=== PATIENT | female | born 1940 | race Caucasian/White ===

== ENCOUNTER → 2018-03-09 12:18 | Outpatient (CLI) | payer MEDICARE, OTHER, SELFPAY ==
--- NOTE | 2018-03-11 07:53 | PM.PFT.1 ---
Pulmonary Function Test Referral & Results Date Patient Seen: 03/09/18 Requesting provider: Presley Hidalgo Results: The spirometry demonstrates an FVC of 1.80 L which is 79% of predicted. The FEV1 was measured at 1.37 L which is 81% of predicted. The FEV1/FVC ratio was 76 which is 102% of predicted. Following the administration of bronchodilator there was a 55% improvement in FEF 25-75% but negligible improvement otherwise. Lung volumes show an SVC of 1.96 L which is 82% of predicted. The diffusing capacity was measured at 16.65 which is 82% of predicted. No hemoglobin value was provided, so no correction for potential anemia could be made, if appropriate. The maximum voluntary ventilation was reduced. Interpretation: This study demonstrates mild obstructive lung disease with limited evidence of benefit following bronchodilator administration based on improvement in FEF 25-75% which would indicate small airway improvement There is minimal reduction in lung volumes suggesting minimal restrictive lung disease There is also a minimal reduction in diffusing capacity. Compared to PFTs performed in January 2015, current study is essentially unchanged. There was very minimal reduction in FEV1 compared to previous
== END ==
PROVIDERS: PCP Family Medicine; Visit Provider Family Medicine
DX: R05 Cough (principal)
CPT/HCPCS: 94010; 94060; 94726; 94729

== ENCOUNTER 2018-12-10 15:09 | Emergency (ER) | payer MEDICARE, OTHER, SELFPAY ==
[2018-12-10 15:14] VITALS: BP 192/67; PULSE 63; RESP 16; TEMP 36.7; O2SAT 99; BMI 26.5
== END 2018-12-10 16:45 | disposition left against medical advice (07) ==
PROVIDERS: Emergency Provider Emergency Medicine; PCP Student in an Organized Health Care Education/Training Program
DX: M79.89 Other specified soft tissue disorders (principal)
CPT/HCPCS: 99281; 99282

== ENCOUNTER → 2018-12-16 14:04 | Outpatient (CLI) | payer MEDICARE, OTHER, SELFPAY ==
[2018-12-19 19:17] LABS: Fecal Immunochemical Test NOT DETECTED (NOT DETECTED)
== END ==
PROVIDERS: PCP Student in an Organized Health Care Education/Training Program; Visit Provider Student in an Organized Health Care Education/Training Program
DX: Z13.820 Encounter for screening for osteoporosis (principal); Z78.0 Asymptomatic menopausal state; Z90.722 Acquired absence of ovaries, bilateral; Z82.62 Family history of osteoporosis; Z87.891 Personal history of nicotine dependence; Z79.899 Other long term (current) drug therapy; Z91.89 Other specified personal risk factors, not elsewhere classified
CPT/HCPCS: 77080; 82274

== ENCOUNTER 2019-01-16 15:42 | Emergency (ER) | payer MEDICARE, OTHER, SELFPAY ==
[2019-01-16 15:55] VITALS: BP 170/80; PULSE 92; RESP 18; TEMP 37.3; O2SAT 97; BMI 27.1
[2019-01-16 16:25] VITALS: PULSE 89; RESP 12; O2SAT 98
[2019-01-16] MEDS: ALBUTEROL 2.5 MG/3 ML NEB (ADULT) INH (16:25)
--- NOTE | 2019-01-16 16:25 | DI.RAD.S_ITS ---
PROCEDURE: XR CHEST 1V INDICATIONS: short of breath TECHNIQUE: One view of the chest was acquired. COMPARISON: [facility], CHEST 2 VIEW, 09/12/2012, 14:20. [facility], CHEST 2 VIEW, 01/30/2015, 10:59. FINDINGS: Surgical changes and devices: None. Lungs and pleura: There is a small left-sided pleural effusion seen. No pneumothorax is seen. Mild interstitial prominence is seen. Mediastinum: There is moderate cardiomegaly. Atherosclerotic calcification of the aortic arch is noted. Bones and chest wall: No suspicious bony lesions. Age-appropriate bony degenerative changes are seen. Overlying soft tissues appear unremarkable. IMPRESSION: Cardiomegaly, interstitial prominence, a small left-sided effusion can be seen. Please correlate with patient presentation, physical examination findings, and laboratory values for congestive heart failure. Dictated by: Archie Asher M.D. on 01/16/2019 at 16:09 Approved by: Archie Asher M.D. on 01/16/2019 at 16:10
[2019-01-16 16:26] VITALS: BP 187/93; PULSE 73; RESP 26; O2SAT 98
[2019-01-16 16:34] LABS: INR 1.1 (0.9-1.3); Prothrombin Time 13.2 SECONDS (10.1-12.7)
[2019-01-16 16:35] LABS: Add Manual Diff / Slide Review NO; Basophils Absolute Auto 100 /uL (0-100); Basophils Percent Auto 0.6 % (0-2); Eosinophils Absolute Auto 100 /uL (0-450); Eosinophils Percent Auto 1.3 % (2-4); Hematocrit 37.6 % (36-46); Hemoglobin 12.5 g/dL (12.0-16.0); Lymphocytes Absolute Auto 1200 /uL (1100-4500); Lymphocytes Percent Auto 12.9 % (25-40); Mean Corpuscular HGB Conc 33.3 % (30-36); Mean Corpuscular Hemoglobin 30.4 PG (26-34); Mean Corpuscular Volume 91.1 fL (80-100); Monocytes Absolute Auto 900 /uL (0-900); Monocytes Percent Auto 9.4 % (3-14); Neutrophils Absolute Auto 6900 /uL (1500-7000); Neutrophils Percent Auto 75.8 % (50-75); Platelet Count 378 X10^3/uL (150-400); Red Blood Cell Count 4.13 X10^6/uL (4.0-5.2); Red Cell Distribution Width 14.7 % (11.6-14.8); White Blood Cell Count 9.1 X10^3/uL (4.5-11.0)
[2019-01-16 16:37] LABS: PTT Partial Thromboplastin Tim 28 SECONDS (26.4-36.2)
[2019-01-16 16:39] LABS: Alanine Aminotransferase 31 IU/L (9-52); Albumin 4.3 g/dL (3.5-5.0); Albumin Globulin Ratio 1.5 (1.0-2.8); Alkaline Phosphatase 73 U/L (38-126); BUN Creatinine Ratio 34.3 (6-22); Bilirubin Total 0.9 mg/dL (0.2-1.3); Blood Urea Nitrogen 24 mg/dL (7-17); Calcium 9.5 mg/dL (8.4-10.2); Carbon Dioxide 26 mmol/L (22-32); Chloride 104 mmol/L (98-107); Creatine Kinase 106 U/L (30-135); Estimated Glomerular Filt Rate > 60.0 mL/min (>60); Globulin 2.9 g/dL (1.7-4.1); Glucose 118 mg/dL (80-110); Lipase 59 U/L (23-300); Potassium 4.2 mmol/L (3.4-5.1); Sodium 141 mmol/L (137-145); Total Protein 7.2 g/dL (6.3-8.2)
--- NOTE | 2019-01-16 16:40 | ED.SOB ---
HPI - SOB/Dyspnea General Chief Complaint: Shortness of Breath/Dyspnea Stated Complaint: SOB Time Seen by Provider: 01/16/19 16:13 Source: patient Mode of arrival: ambulatory Limitations: no limitations History of Present Illness Patient is an 78-year-old female presents with increasing shortness of breath. She says every time she exerts herself even in the slightest such as vacuuming she gets short of breath, this is been ongoing for few days but she noticed it significantly worse today. She called her PCP who told her to come to the ED. She denies any fever weakness body aches. She does have some lower extremity edema. She says that she is on furosemide and that she is taking it regularly. She has no chest pain no heart palpitations. H she is noted to be mildly hypoxic 88% at on room air, but has no conversational dyspnea Related Data Home Medications Medication Instructions Recorded Confirmed aspirin 81 mg tablet,delayed 81 mg PO DAILY 12/01/18 01/16/19 release lisinopril 20 mg tablet 20 mg PO DAILY 12/01/18 01/16/19 Aronia 1 dose PO DAILY 01/16/19 01/16/19 Astralages 1 dose PO DAILY 01/16/19 01/16/19 CoQ-10 1 cap PO DAILY 01/16/19 01/16/19 Immune Support Complex 1 cap PO DAILY 01/16/19 01/16/19 Lactobacillus acidophilus 1 cap PO PRN PRN 01/16/19 01/16/19 [Acidophilus] alprazolam 0.25 mg PO BID PRN 01/16/19 01/16/19 ascorbic acid (vitamin C) 1 tab PO DAILY 01/16/19 01/16/19 echinacea 1 tab PO DAILY 01/16/19 01/16/19 estradiol 0.5 mg PO Q OTHER DAY 01/16/19 01/16/19 fluoxetine 10 mg PO DAILY 01/16/19 01/16/19 furosemide 40 mg PO DAILY 01/16/19 01/16/19 melatonin 3 mg PO BEDTIME PRN 01/16/19 01/16/19 [id number] acid-lutein [Centrum 1 tab PO DAILY 01/16/19 01/16/19 Silver] naproxen 375 mg PO BID PRN 01/16/19 01/16/19 vitamin E 400 unit PO DAILY 01/16/19 01/16/19 zinc 1 tab PO DAILY 01/16/19 01/16/19 Previous Rx's Medication Instructions Recorded albuterol sulfate HFA 90 2 puff INHALATION Q4-6H PRN #18 03/17/18 mcg/actuation aerosol inhaler gram umeclidinium 62.5 mcg/actuation 1 inhalation INHALATION DAILY #30 03/17/18 blister powder for inhalation each cetirizine 10 mg tablet 10 mg PO DAILY #90 tab 03/18/18 acetaminophen 325 mg capsule 325 mg PO QID PRN #90 cap 04/25/18 omeprazole 20 mg capsule,delayed 20 mg PO DAILY #30 cap 08/24/18 release furosemide [Lasix] 20 mg PO TID #10 tab 01/16/19 furosemide [Lasix] 20 mg PO TID #30 tab 01/16/19 Allergies Allergy/AdvReac Type Severity Reaction Status Date / Time latex Allergy Severe BREAKOUT Verified 01/16/19 16:02 prochlorperazine Allergy Severe TARDIVE Verified 01/16/19 16:02 DYSKINESIA Review of Systems Review of Systems ROS Unobtainable: All systems reviewed & are unremarkable except as noted in HPI and below Constitutional Denies chills, Denies fever(s), Denies lethargy and Denies weakness Cardiovascular Denies chest pain, Reports pedal edema, Denies irregular heart rhythm, Denies lightheadedness, Denies palpitations, Reports dyspnea on exertion and Denies orthopnea Respiratory Reports as per HPI and Reports dyspnea on exertion Genitourinary Denies hematuria, Denies flank pain, Denies urinary incontinence and Denies urinary urgency Musculoskeletal Denies back pain, Denies muscle weakness, Denies numbness and Denies tingling Integumentary/Breasts Denies pruritus, Denies erythema, Denies rash and Denies wounds Neurologic Denies numbness, Denies tingling and Denies weakness Endocrine Denies palpitations [facility] Medical History AVM (arteriovenous malformation) (Chronic) Atrial fibrillation (Chronic 2012) Chronic headaches (Chronic) Foot pain (Chronic) Hyperlipidemia (Chronic) Hypertension (Chronic) Lumbar spine pain (Chronic 1976) Migraines (Chronic) CTS (carpal tunnel syndrome) (Resolved 2004) Cerebral aneurysm (Resolved 1949) Chicken pox (Resolved 1948) Depression (Resolved 1984) Fibroids (Resolved 1988) Measles (Resolved 1947) Ovarian cyst (Resolved 1956) Painful menstrual periods (Resolved 1951) Stroke (Resolved) Surgical History Anesthesia (Resolved) History of appendectomy (Resolved ~07/1990) History of carpal tunnel repair (Resolved 2004) Status post colonoscopy (Resolved 09/05/07) Status post endoscopy (Resolved 05/22/13) Status post epidural steroid injection (Resolved) Status post hysterectomy (Resolved ~07/1990) History of bilateral salpingo-oophorectomy (BSO) Family History Brother Coronary artery disease Myocardial infarction Father Kidney disease Glomerulonephritis Grandfather Heart disease Cerebrovascular accident (CVA), unspecified mechanism Grandmother Essential hypertension Mental health problem Vascular disease Mother Multiple myeloma Grandmother Gastric hemorrhage Essential hypertension High cholesterol Brother No problems noted. Grandfather Myocardial infarction Social History Smoking Status: Former smoker Family History Brother Coronary artery disease Myocardial infarction Father Kidney disease Glomerulonephritis Grandfather Heart disease Cerebrovascular accident (CVA), unspecified mechanism Grandmother Essential hypertension Mental health problem Vascular disease Mother Multiple myeloma Grandmother Gastric hemorrhage Essential hypertension High cholesterol Brother No problems noted. Grandfather Myocardial infarction Social History marital status: Smoking Status: Former smoker Exam Initial Vital Signs Initial Vital Signs: Vital Signs Temperature 99.2 F 01/16/19 15:55 Pulse Rate 92 H 01/16/19 15:55 Respiratory Rate 18 01/16/19 15:55 Blood Pressure 170/80 H 01/16/19 15:55 Pulse Oximetry 97 01/16/19 15:55 GENERAL: Alert nice elderly lady no acute distress speaking full sentences HEENT: Head atraumatic,EOMI, pupils reactive, face symmetric, CARDIOVASCULAR: Regular rate and rhythm without murmurs, rubs or gallops. RESPIRATORY: Breath sounds equal bilaterally some crackles at base is no respiratory distress ABDOMEN: Soft, nontender. Normoactive bowel sounds all 4 quadrants. No guarding or rebound. RECTAL: Hemoccult-positive, no hemorrhoids, nontender : No CVA tenderness EXTREMITIES: Normal range of motion, no clubbing +2 pitting edema Neurovascularly intact NEUROLOGICAL: Alert and oriented x4.Normal gait and speech SKIN: Warm, dry, no laceration, no petechiae, no rashes or lesions. Course Orders Ordered: ED Orders 01/16/19 16:13 EKG-12 Lead Stat 01/16/19 16:16 BNP [B Type Natriuretic Peptide] Stat Complete Blood Count AUTO DIFF Stat Comprehensive Metabolic Panel Stat Lipase Stat Magnesium Stat Partial Thromboplastin Time Stat Prothrombin Time INR Stat Troponin & CK Cardiac Panel Stat 01/16/19 16:25 Consult to Respiratory Therapy Evaluate & Treat XR chest 1V Stat 01/16/19 16:36 Lactate (Lactic Acid) Stat Discontinued Medications Albuterol (Ventolin) 2.5 mg INH NOW ONE Stop: 01/16/19 16:24 Last Admin: 01/16/19 16:25 Dose: 2.5 mg Albuterol/Ipratropium (Duoneb) 3 ml INH NOW ONE Stop: 01/16/19 16:26 Last Admin: 01/16/19 18:05 Dose: 3 ml Furosemide (Lasix) 40 mg IV NOW ONE Stop: 01/16/19 17:45 Last Admin: 01/16/19 17:59 Dose: 40 mg Vital Signs - 8 hr 01/16/19 15:55 01/16/19 16:25 01/16/19 16:26 Temperature 99.2 F Pulse Rate 92 H 89 73 Respiratory Rate 18 12 26 H Blood Pressure 170/80 H Blood Pressure [Left Arm] 187/93 H Pulse Oximetry 97 98 98 01/16/19 18:05 Temperature Pulse Rate 79 Respiratory Rate 16 Blood Pressure Blood Pressure [Left Arm] Pulse Oximetry 100 MDM - SOB/Dyspnea Lab Data Attestation: I reviewed the patient's lab results. Result diagrams: 01/16/19 16:16 01/16/19 16:16 Lab Results 01/16/19 01/16/19 01/16/19 Range/Units 16:16 16:16 16:16 WBC 9.1 (4.5-11.0) X10^3/uL RBC 4.13 (4.0-5.2) X10^6/uL Hgb 12.5 (12.0-16.0) g/dL Hct 37.6 (36-46) % MCV 91.1 (80-100) fL MCH 30.4 (26-34) PG MCHC 33.3 (30-36) % RDW 14.7 (11.6-14.8) % Plt Count 378 (150-400) X10^3/uL Neut % (Auto) 75.8 H (50-75) % Lymph % (Auto) 12.9 L (25-40) % [place] % (Auto) 9.4 (3-14) % Eos % (Auto) 1.3 L (2-4) % Baso % (Auto) 0.6 (0-2) % Neut # (Auto) 6900 (8389-0087) /uL Lymph # (Auto) 1200 (0670-8213) /uL [place] # (Auto) 900 (0-900) /uL Eos # (Auto) 100 (0-450) /uL Baso # (Auto) 100 (0-100) /uL PT 13.2 H (10.1-12.7) SECONDS INR 1.1 (0.9-1.3) APTT 28 (26.4-36.2) SECONDS Sodium 141 (137-145) mmol/L Potassium 4.2 (3.4-5.1) mmol/L Chloride 104 (98-107) mmol/L Carbon Dioxide 26 (22-32) mmol/L BUN 24 H (7-17) mg/dL Creatinine 0.70 (0.52-1.04) mg/dL Estimated GFR > 60.0 (>60) mL/min BUN/Creatinine Ratio 34.3 H (6-22) Glucose 118 H (80-110) mg/dL Lactate (0.7-2.1) mmol/L Calcium 9.5 (8.4-10.2) mg/dL Magnesium (1.6-2.3) mg/dL Total Bilirubin 0.9 (0.2-1.3) mg/dL AST 38 H (14-36) IU/L ALT 31 (9-52) IU/L Alkaline Phosphatase 73 (38-126) U/L Total Creatine Kinase 106 (30-135) U/L CK-MB (CK-2) 3.70 H (<2.37) ng/mL CK-MB (CK-2) Rel Index 3.5 (1.5-5.0) % Troponin I 0.034 (0.01-0.034) ng/mL B-Natriuretic Peptide 327 H (<100) Total Protein 7.2 (6.3-8.2) g/dL Albumin 4.3 (3.5-5.0) g/dL Globulin 2.9 (1.7-4.1) g/dL Albumin/Globulin Ratio 1.5 (1.0-2.8) Lipase 59 (23-300) U/L 01/16/19 01/16/19 Range/Units 16:16 16:36 WBC (4.5-11.0) X10^3/uL RBC (4.0-5.2) X10^6/uL Hgb (12.0-16.0) g/dL Hct (36-46) % MCV (80-100) fL MCH (26-34) PG MCHC (30-36) % RDW (11.6-14.8) % Plt Count (150-400) X10^3/uL Neut % (Auto) (50-75) % Lymph % (Auto) (25-40) % [place] % (Auto) (3-14) % Eos % (Auto) (2-4) % Baso % (Auto) (0-2) % Neut # (Auto) (0474-8878) /uL Lymph # (Auto) (1647-0771) /uL [place] # (Auto) (0-900) /uL Eos # (Auto) (0-450) /uL Baso # (Auto) (0-100) /uL PT (10.1-12.7) SECONDS INR (0.9-1.3) APTT (26.4-36.2) SECONDS Sodium (137-145) mmol/L Potassium (3.4-5.1) mmol/L Chloride (98-107) mmol/L Carbon Dioxide (22-32) mmol/L BUN (7-17) mg/dL Creatinine (0.52-1.04) mg/dL Estimated GFR (>60) mL/min BUN/Creatinine Ratio (6-22) Glucose (80-110) mg/dL Lactate 1.2 (0.7-2.1) mmol/L Calcium (8.4-10.2) mg/dL Magnesium 1.8 (1.6-2.3) mg/dL Total Bilirubin (0.2-1.3) mg/dL AST (14-36) IU/L ALT (9-52) IU/L Alkaline Phosphatase (38-126) U/L Total Creatine Kinase (30-135) U/L CK-MB (CK-2) (<2.37) ng/mL CK-MB (CK-2) Rel Index (1.5-5.0) % Troponin I (0.01-0.034) ng/mL B-Natriuretic Peptide (<100) Total Protein (6.3-8.2) g/dL Albumin (3.5-5.0) g/dL Globulin (1.7-4.1) g/dL Albumin/Globulin Ratio (1.0-2.8) Lipase (23-300) U/L Imaging Data Chest x-ray: Radiologist's impression: PROCEDURE: XR CHEST 1V INDICATIONS: short of breath TECHNIQUE: One view of the chest was acquired. COMPARISON: [facility], CHEST 2 VIEW, 09/12/2012, 14:20. [facility], CHEST 2 VIEW, 01/30/2015, 10:59. FINDINGS: Surgical changes and devices: None. Lungs and pleura: There is a small left-sided pleural effusion seen. No pneumothorax is seen. Mild interstitial prominence is seen. Mediastinum: There is moderate cardiomegaly. Atherosclerotic calcification of the aortic arch is noted. Bones and chest wall: No suspicious bony lesions. Age-appropriate bony degenerative changes are seen. Overlying soft tissues appear unremarkable. IMPRESSION: Cardiomegaly, interstitial prominence, a small left-sided effusion can be seen. Please correlate with patient presentation, physical examination findings, and laboratory values for congestive heart failure. Dictated by: Archie Asher M.D. on 01/16/2019 at 16:09 ECG Data Attestation: I personally reviewed and interpreted this ECG as follows: Prior ECG tracings: not available for review Interpretation: Atrial fibrillation rate [address] changes no priors to compare MDM Narrative Medical decision making narrative: Patient isn't needing 1-2 L of oxygen while at rest. With ambulation O2 sat dropped from 88-89%. Patient is extremely angry that she has been waiting a long time she needs to go feed her animals. I have explained to her that I actually recommended admission due to her oxygen level. I explained that she needs to be on an increased dose of her diuretic. She is able to argue with me without oxygen without any sort of respiratory distress. At this time patient will be discharged with increasing dose and frequency of furosemide I told her at least 3 times a day for the next 3 days. She agreed to return to the ED when she planned to be admitted, even though discussed that patient's stone plan to be admitted and sometimes they need oxygen. The patient is clinically sober, free from distracting injury, appears to have intact insight, judgment and reason. Does not meet criteria for involuntary hospitalization. Patient has the capacity to make decisions. Discharge Plan Departure Patient Disposition: Home Clinical Impression: CHF (congestive heart failure) Qualifiers: Heart failure type: unspecified Heart failure chronicity: unspecified Qualified Code(s): I50.9 - Heart failure, unspecified Discharge Date/Time: 01/16/19 19:07 Interventions: ED Discharge Assessment Last Done: 01/16/19 19:06 Instructions: DI for Heart Failure Activity Restrictions/Additional Instructions: DISCHARGE WE RECOMMENDED THAT HE STAY IN THE HOSPITAL DUE TO YOUR OXYGEN LEVEL, YOU ARE WELCOME TO RETURN TO THE HOSPITAL AT ANY TIME IF YOU SHOULD HAVE INCREASING SHORTNESS OF BREATH *You have been diagnosed with congestive heart failure *What to do: It is recommended that he stay in the hospital to have further testing and oxygen provided *Continue to take medications as directed Furosimide 20mg 3 times a day FOR 3 DAYS ONLY *Follow up with your primary care provider in 2-3 days *Return to ER if you should have increasing shortness of breath , chest pain fever any new, worsening or concerning symptoms Prescriptions: New furosemide [Lasix] 20 mg tablet 20 mg PO TID Qty: 30 RF: 0 furosemide [Lasix] 20 mg tablet 20 mg PO TID Qty: 10 RF: 0 No Action umeclidinium [Incruse Ellipta] 62.5 mcg/actuation blister with device 1 inhalation INHALATION DAILY Qty: 30 RF: 0 albuterol sulfate 90 mcg/actuation HFA aerosol inhaler 2 puff INHALATION Q4-6H PRN (Reason: shortness of breath or wheezing) Qty: 18 RF: 6 omeprazole 20 mg capsule,delayed release(DR/EC) 20 mg PO DAILY Qty: 30 RF: 1 cetirizine [All Day Allergy (cetirizine)] 10 mg tablet 10 mg PO DAILY Qty: 90 RF: 0 acetaminophen 325 mg capsule 325 mg PO QID PRN (Reason: pain) Qty: 90 RF: 0 lisinopril 20 mg tablet 20 mg PO DAILY RF: 0 aspirin [Adult Low Dose Aspirin] 81 mg tablet,delayed release (DR/EC) 81 mg PO DAILY RF: 0 naproxen 375 mg Tablet 375 mg PO BID PRN (Reason: pain) RF: 0 alprazolam 0.25 mg Tablet 0.25 mg PO BID PRN (Reason: pain) RF: 0 estradiol 0.5 mg Tablet 0.5 mg PO Q OTHER DAY RF: 0 furosemide 40 MG tablet 40 mg PO DAILY RF: 0 fluoxetine 10 MG capsule 10 mg PO DAILY RF: 0 vitamin E 400 unit Capsule 400 unit PO DAILY RF: 0 Centrum Silver 400-250 mcg Tablet,Chewable 1 tab PO DAILY RF: 0 CoQ-10 1 cap PO DAILY RF: 0 Immune Support Complex 1 cap PO DAILY RF: 0 ascorbic acid (vitamin C) 1 tab PO DAILY RF: 0 echinacea 1 tab PO DAILY RF: 0 Aronia 1 dose PO DAILY RF: 0 Astralages 1 dose PO DAILY RF: 0 melatonin 3 mg Tablet 3 mg PO BEDTIME PRN (Reason: Sleep) RF: 0 Lactobacillus acidophilus [Acidophilus] Capsule 1 cap PO PRN PRN (Reason: Diarrhea) RF: 0 zinc 1 tab PO DAILY RF: 0 Referrals: Gene Macias MD [Primary Care Provider] -
[2019-01-16 16:51] LABS: Troponin I 0.034 ng/mL (0.01-0.034)
[2019-01-16 16:52] LABS: B Type Natriuretic Peptide 327 (<100)
[2019-01-16 17:14] LABS: Lactate (Lactic Acid) 1.2 mmol/L (0.7-2.1)
[2019-01-16] MEDS: FUROSEMIDE 40 MG/4 ML VIAL IV (17:59)
[2019-01-16 18:03] LABS: Magnesium 1.8 mg/dL (1.6-2.3)
[2019-01-16 18:05] VITALS: PULSE 79; RESP 16; O2SAT 100
[2019-01-16] MEDS: ALBUTEROL/IPRATROPIUM 3 ML AMPUL INH (18:05)
[2019-01-16 18:06] LABS: CKMB % Relative Index 3.5 % (1.5-5.0)
[2019-01-16 18:09] LABS: HEMOLYSIS 65 (0-50)
[2019-01-16 18:10] LABS: Aspartate Aminotransferase 38 IU/L (14-36)
== END 2019-01-16 19:07 | disposition home or self-care (01) ==
PROVIDERS: Emergency Provider Emergency Medicine; PCP Student in an Organized Health Care Education/Training Program
DX: I50.9 Heart failure, unspecified (principal)
CPT/HCPCS: 36415; 36591; 71045; 80053; 82550; 82553; 83605; 83690; 83735; 83880; 84484; 85025; 85610; 85730; 93005; 94640; 96374; 99283; 99285; J1940; J7613

== ENCOUNTER → 2019-05-12 10:58 | Outpatient (CLI) | payer MEDICARE, OTHER, SELFPAY ==
[2019-05-20 01:06] LABS: Calprotectin, Stool 295.9 mcg/g
== END ==
PROVIDERS: PCP Nurse Practitioner; Visit Provider Student in an Organized Health Care Education/Training Program
DX: R19.7 Diarrhea, unspecified (principal)
CPT/HCPCS: 83993; 84376

== ENCOUNTER → 2019-05-23 10:16 | Outpatient (CLI) | payer MEDICARE, OTHER, SELFPAY ==
[2019-05-23 13:13] LABS: Clostridium Difficile Tox PCR Negative for C. diff
== END ==
PROVIDERS: PCP Nurse Practitioner; Visit Provider Student in an Organized Health Care Education/Training Program
DX: R19.7 Diarrhea, unspecified (principal)
CPT/HCPCS: 87493

== ENCOUNTER 2020-06-29 21:13 | Inpatient (IN) | payer MEDICARE, OTHER, SELFPAY ==
[2020-06-29 21:35] VITALS: BP 179/71; PULSE 68; RESP 18; TEMP 36.5; O2SAT 92; BMI 21.9
[2020-06-29 21:44] LABS: Bacteria Urine Few (2-10); Culture Indicated Urine Specimen Cultured; Hyaline Casts Urine 0-1/LPF; RBC Urine 1-5/HPF (0-5/HPF); Squamous Epithelial Cell Urine 1-5 /HPF (0-5/HPF); WBC Urine 1-5/HPF (0-5/HPF)
[2020-06-29 21:49] VITALS: PULSE 59; RESP 19; O2SAT 98
[2020-06-29 22:00] VITALS: BP 186/87; PULSE 65; RESP 23; O2SAT 98
--- NOTE | 2020-06-29 22:07 | DI.CT.S_ITS ---
PROCEDURE: CT HEAD/BRAIN WO CON INDICATIONS: L arm L leg weakness, numbness, balance TECHNIQUE: Noncontrast 4.5 mm thick angled axial sections acquired from the foramen magnum to the vertex, with coronal and sagittal reformats. For radiation dose reduction, the following was used: automated exposure control, adjustment of mA and/or kV according to patient size. COMPARISON: None. FINDINGS: Image quality: Excellent. CSF spaces: Basal cisterns are patent. No extra-axial fluid collections. The ventricles are symmetric in size and shape. Brain: No intracranial bleeds or masses. There is cerebral volume loss for age, with resultant ventricular and sulcal prominence. There are periventricular and deep white matter chronic small vessel ischemic changes. There is a remote appearing right posterior cerebral this for infarction seen. There is intracranial internal carotid artery atherosclerosis. Skull and face: Calvarium and visualized facial bones appear intact, without suspicious lesions. Sinuses: Visualized sinuses and mastoids are clear. 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 IMPRESSION: No acute intracranial process is seen. Remote appearing right posterior cerebral infarction. No acute intracranial hemorrhage is seen. Note is made of age-appropriate brain parenchymal volume loss and chronic small vessel ischemic changes. If there is strong clinical suspicion for an acute stroke, please consider an MRI for further evaluation, as it is more sensitive (assuming that there is no contraindication to MRI). Dictated by: Archie Asher M.D. on 06/29/2020 at 22:05 Approved by: Archie Asher M.D. on 06/29/2020 at 22:07
--- NOTE | 2020-06-29 22:11 | ED_ITS ---
HPI - Neuro Symptoms/Deficit General Chief Complaint: Altered Mental Status Stated Complaint: hallucinations Time Seen by Provider: 06/29/20 21:15 Source: patient Mode of arrival: Ambulatory Limitations: no limitations History of Present Illness HPI Narrative: 79-year-old female former smoker with history of atrial fibrillation, hypertension, spontaneous subdural hemorrhages many many years ago presents with her son due to approximately 2 weeks of visual hallucinations along with some confusion and balance issues. The patient lives at home by herself but does have a house shorer that comes a few times a week and her son checks on her 2 times a week. She denies any falls or head injury. She denies any fever, chills nor nausea or vomiting. She denies any chest pain or shortness of breath. She denies any abdominal pain, nausea, vomiting or urinary complaints such as dysuria, frequency or urgency. She does complain of some tingling in her left hand and left foot. She denies any new medications. Her visual hallucinations are largely of her coming to visit her. She does not currently have a primary care provider and does unclear if she has been taking her medications. Onset (ago): week(s) Timing confirmed by: family member Location: ataxia, altered and other History of same: No Severity: moderate Quality: tingling Relieving factors: none Exacerbating factors: none On Anticoagulants: No (baby asa) Associated symptoms: confusion Treatments Prior to Arrival: none Related Data Home Medications Medication Instructions Recorded Confirmed aspirin 81 mg tablet,delayed 81 mg PO DAILY 12/01/18 02/09/19 release lisinopril 20 mg tablet 20 mg PO DAILY 12/01/18 02/09/19 Aronia 1 dose PO DAILY 01/16/19 02/09/19 Astralages 1 dose PO DAILY 01/16/19 02/09/19 CoQ-10 1 cap PO DAILY 01/16/19 02/09/19 Immune Support Complex 1 cap PO DAILY 01/16/19 02/09/19 Lactobacillus acidophilus 1 cap PO PRN PRN 01/16/19 02/09/19 [Acidophilus] alprazolam 0.25 mg PO BID PRN 01/16/19 02/09/19 ascorbic acid (vitamin C) 1 tab PO DAILY 01/16/19 02/09/19 echinacea 1 tab PO DAILY 01/16/19 02/09/19 estradiol 0.5 mg PO Q OTHER DAY 01/16/19 02/09/19 fluoxetine 10 mg PO DAILY 01/16/19 02/09/19 furosemide 40 mg PO DAILY 01/16/19 02/09/19 melatonin 3 mg PO BEDTIME PRN 01/16/19 02/09/19 [id number] acid-lutein [Centrum 1 tab PO DAILY 01/16/19 02/09/19 Silver] naproxen 375 mg PO BID PRN 01/16/19 02/09/19 vitamin E 400 unit PO DAILY 01/16/19 02/09/19 zinc 1 tab PO DAILY 01/16/19 02/09/19 Previous Rx's Medication Instructions Recorded albuterol sulfate 90 mcg/actuation 2 puff INHALATION Q4-6H PRN #18 03/17/18 aerosol inhaler gram umeclidinium 62.5 mcg/actuation 1 inhalation INHALATION DAILY #30 03/17/18 blister powder for inhalation each cetirizine 10 mg tablet 10 mg PO DAILY #90 tab 03/18/18 acetaminophen 325 mg capsule 325 mg PO QID PRN #90 cap 04/25/18 omeprazole 20 mg capsule,delayed 20 mg PO DAILY #30 cap 08/24/18 release furosemide [Lasix] 20 mg PO TID #10 tab 01/16/19 furosemide [Lasix] 20 mg PO TID #30 tab 01/16/19 Allergies Allergy/AdvReac Type Severity Reaction Status Date / Time latex Allergy Severe BREAKOUT Verified 06/29/20 21:35 prochlorperazine Allergy Severe TARDIVE Verified 06/29/20 21:35 DYSKINESIA Review of Systems Constitutional Constitutional: Denies chills, Denies fatigue, Denies fever(s), Denies frequent falls, Denies lethargy and Denies weakness Eyes Eyes: Denies change in vision, Denies eye discharge, Denies irritation and D enies loss of vision ENT Ears, Nose, Mouth, and Throat: Denies change in voice, Denies dizziness, Denies neck pain, Denies sore throat and Denies throat swelling Cardiovascular Cardiovascular: Denies chest pain, Denies irregular heart rhythm, Denies lightheadedness, Denies palpitations, Denies dyspnea, Denies dyspnea on exertion and Denies orthopnea Respiratory Respiratory: Denies cough, Denies dyspnea, Denies dyspnea on exertion and Denies wheezing Gastrointestinal Gastrointestinal: Denies abdominal pain, Denies change in bowel habits, Denies diarrhea, Denies nausea and Denies vomiting Musculoskeletal Musculoskeletal: Denies neck pain and Denies numbness Integumentary/Breasts Skin/Breast: Denies pruritus, Denies erythema, Denies rash and Denies wounds Neurologic Neurologic: Denies behavioral changes, Reports confusion, Denies dizziness, Denies frequent falls, Denies loss of vision, Denies numbness, Reports other vi sual disturbances and Denies weakness Comments: tingling Psychiatric Psychiatric: Denies anxiety, Denies behavioral changes, Reports confusion, Denies depression, Denies homicidal ideation and Denies suicidal ideation Endocrine Endocrine: Denies fatigue, Denies flushing and Denies palpitations Hematologic/Lymphatic Hematologic/Lymphatic: Denies easy bruising Allergic/Immunologic Allergic/Immunologic: Denies urticaria, Denies throat swelling and Denies wheezing Patient History Medical History Atrial fibrillation (Chronic 2012) AVM (arteriovenous malformation) (Chronic) Cerebral aneurysm (Resolved 1949) Chicken pox (Resolved 1948) Chronic headaches (Chronic) CTS (carpal tunnel syndrome) (Resolved 2004) Depression (Resolved 1984) Fibroids (Resolved 1988) Foot pain (Chronic) Hyperlipidemia (Chronic) Hypertension (Chronic) Lumbar spine pain (Chronic 1976) Measles (Resolved 1947) Migraines (Chronic) Ovarian cyst (Resolved 1956) Painful menstrual periods (Resolved 1951) Stroke (Resolved) Surgical History Anesthesia (Resolved) History of appendectomy (Resolved ~07/1990) History of bilateral salpingo-oophorectomy (BSO) History of carpal tunnel repair (Resolved 2004) Status post colonoscopy (Resolved 09/05/07) Status post endoscopy (Resolved 05/22/13) Status post epidural steroid injection (Resolved) Status post hysterectomy (Resolved ~07/1990) Family History Brother Coronary artery disease Myocardial infarction Father Kidney disease Glomerulonephritis Grandfather Heart disease Cerebrovascular accident (CVA), unspecified mechanism Grandmother Essential hypertension Mental health problem Vascular disease Mother Multiple myeloma Grandmother Gastric hemorrhage Essential hypertension High cholesterol Brother No problems noted. Grandfather Myocardial infarction Social History marital status: Smoking Status: Former smoker Smoking Status: Former smoker Substance Use Type: does not use and IV drugs Exam Narrative Exam Narrative: GENERAL: [79] year old patient appears stated age. Well- nourished, well-developed patient, in mild distress. Pleasantly confused HEAD: Atraumatic. Normocephalic. EYES: Pupils equal round and reactive. Extraocular motions intact. No scleral icterus. No injection or drainage. ENT: Nose without bleeding, purulent drainage. Throat without erythema, tonsillar hypertrophy or exudate. Airway patent. NECK: Trachea midline. Non tender CARDIOVASCULAR: Irregular rate and rhythm without murmurs, gallops, or rubs. RESPIRATORY: Clear to auscultation. Breath sounds equal bilaterally. No wheezes, rales, or rhonchi. GASTROINTESTINAL: Abdomen soft, non-tender, nondistended. EXTREMITIES: No edema or joint tenderness. BACK: Nontender without deformity or crepitance. No flank tenderness. SKIN: No rash or erythema of visible areas Initial Vital Signs Initial Vital Signs: Vital Signs Temperature 97.7 F 06/29/20 21:35 Pulse Rate 68 06/29/20 21:35 Respiratory Rate 18 06/29/20 21:35 Blood Pressure 179/71 H 06/29/20 21:35 Pulse Oximetry 92 06/29/20 21:35 Scores NIH Stroke Scale Level of Conciousness: Alert, keenly responsive Ask month/age: Answers both questions correctly. Open/close eyes, close hand: Performs both tasks correctly Best gaze horizontal: Normal Visual lyn: No visual loss Facial palsy: Normal symetrical movement Left arm drift: Drifts down, not to bed Right arm drift: No drift for full 10 sec Left leg drift: Drifts down, not to bed Right leg drift: No drift for full 10 sec Limb ataxia: Present in one limb Sensory on face/arms/legs: Mild to moderate sensory loss, can tell touch Best language: No aphasia, normal Dysarthria: Normal Extinction or inattention: No abnormality Total NIH Stroke scale score: 4 Course Course Course Narrative: Patient with perhaps 2 weeks of what initially was thought to be just confusion and hallucinations but upon completion of them there are focal neurologic findings. UTI demonstrated on urine, and treated but unlikely to contribute to focal findings. She does have a history of atrial fibrillation and hypertension putting her at risk for stroke. She is clearly outside of any interventional window such as TPA or mechanical retrieval. She lives at home alone and has no physician. She will need hospitalization for further evaluation of her diagnosis and stabilization prior to going home. She and her son understand and are in agreement with the plan. Orders Ordered: ED Orders 06/29/20 21:33 Urine Culture Stat Urine Drug Screen, Rapid Stat Urine Microscopic Stat 06/29/20 22:07 CT head/brain wo con Stat 06/29/20 22:08 EKG-12 Lead Stat 06/29/20 22:20 Basic Metabolic Panel Stat COVID19 -ED/INPAT/OR/L&D Stat Complete Blood Count AUTO DIFF Stat Ethanol (ETOH) Stat NT-proBNP (BNP-Adult 18+) Stat Partial Thromboplastin Time Stat Prothrombin Time INR Stat Troponin & CK Cardiac Panel Stat Sodium Chloride (Normal Saline 0.9%) 1,000 mls @ 150 mls/hr IV CONT DEDE Last Infusion: 06/30/20 01:41 Dose: 150 mls/hr Documented by: Admin: 06/29/20 22:30 Dose: 150 mls/hr Documented by: DEBBI Discontinued Medications Aspirin (Aspirin Chew) 324 mg PO NOW ONE Stop: 06/29/20 22:08 Last Admin: 06/29/20 22:31 Dose: 324 mg Documented by: DEBBI Vital Signs Vital signs: Vital Signs - 8 hr 06/29/20 21:35 06/29/20 21:49 06/29/20 22:00 Temperature 97.7 F Pulse Rate 68 59 L 65 Respiratory Rate 18 19 23 Blood Pressure 179/71 H 186/87 H Pulse Oximetry 92 98 98 06/29/20 22:33 06/29/20 23:00 06/29/20 23:30 Temperature Pulse Rate 74 56 L 60 Respiratory Rate 24 23 Blood Pressure Pulse Oximetry 90 L 96 93 MDM - Neuro Symptoms/Deficit Lab Data Result diagrams: 06/29/20 22:20 06/29/20 22:20 Labs: Lab Results 06/29/20 06/29/20 06/29/20 Range/Units 21:33 21:33 22:20 WBC (4.5-11.0) X10^3/uL RBC (4.0-5.2) X10^6/uL Hgb (12.0-16.0) g/dL Hct (36-46) % MCV (80-100) fL MCH (26-34) PG MCHC (30-36) % RDW (11.6-14.8) % Plt Count (150-400) X10^3/uL Neut % (Auto) (50-75) % Lymph % (Auto) (25-40) % [place] % (Auto) (3-14) % Eos % (Auto) (2-4) % Baso % (Auto) (0-2) % Neut # (Auto) (8667-5644) /uL Lymph # (Auto) (2632-7939) /uL [place] # (Auto) (0-900) /uL Eos # (Auto) (0-450) /uL Baso # (Auto) (0-100) /uL PT (10.1-12.7) SECONDS INR (0.9-1.3) APTT (26.4-36.2) SECONDS Sodium (137-145) mmol/L Potassium (3.4-5.1) mmol/L Chloride (98-107) mmol/L Carbon Dioxide (22-32) mmol/L BUN (7-17) mg/dL Creatinine (0.52-1.04) mg/dL Estimated GFR (>60) mL/min BUN/Creatinine Ratio (6-22) Glucose (80-110) mg/dL Calcium (8.4-10.2) mg/dL Total Creatine Kinase (30-135) U/L CK-MB (CK-2) (<2.37) ng/mL CK-MB (CK-2) Rel Index (1.5-5.0) % Troponin I (0.01-0.034) ng/mL NT-Pro-B Natriuret Pep (<450) pg/mL Urine RBC 1-5/hpf (0-5/HPF) Urine WBC 1-5/hpf (0-5/HPF) Ur Squamous Epith Cells 1-5 /hpf (0-5/HPF) Urine Bacteria Few (2-10) H (None) Hyaline Casts 0-1/lpf (None) Ur Culture Indicated? Specimen cultured U Opiates 300ng/mL cut Negative (Negative) Ur Oxycodone Screen Negative (Negative) Urine Methadone Screen Negative (Negative) Ur Barbiturates Screen Negative (Negative) U Tricyclic Antidepress Negative (Negative) Ur Phencyclidine Scrn Negative (Negative) Ur Amphetamines Screen Negative (Negative) U Methamphetamines Scrn Negative (Negative) Ur MDMA Scrn (Ecstasy) Negative (Negative) U Benzodiazepines Scrn Negative (Negative) Urine Cocaine Screen Negative (Negative) U Marijuana (THC) Screen Negative (Negative) Ethyl Alcohol ( - 10) mg/dL COVID-19 PCR Negative (Negative) 06/29/20 06/29/20 06/29/20 Range/Units 22:20 22:20 22:20 WBC 8.4 (4.5-11.0) X10^3/uL RBC 4.07 (4.0-5.2) X10^6/uL Hgb 12.7 (12.0-16.0) g/dL Hct 38.6 (36-46) % MCV 94.9 (80-100) fL MCH 31.3 (26-34) PG MCHC 32.9 (30-36) % RDW 13.8 (11.6-14.8) % Plt Count 318 (150-400) X10^3/uL Neut % (Auto) 75.6 H (50-75) % Lymph % (Auto) 14.1 L (25-40) % [place] % (Auto) 8.7 (3-14) % Eos % (Auto) 0.9 L (2-4) % Baso % (Auto) 0.7 (0-2) % Neut # (Auto) 6400 (1735-5333) /uL Lymph # (Auto) 1200 (9151-5501) /uL [place] # (Auto) 700 (0-900) /uL Eos # (Auto) 100 (0-450) /uL Baso # (Auto) 100 (0-100) /uL PT 12.3 (10.1-12.7) SECONDS INR 1.1 (0.9-1.3) APTT 29 (26.4-36.2) SECONDS Sodium (137-145) mmol/L Potassium (3.4-5.1) mmol/L Chloride (98-107) mmol/L Carbon Dioxide (22-32) mmol/L BUN (7-17) mg/dL Creatinine (0.52-1.04) mg/dL Estimated GFR (>60) mL/min BUN/Creatinine Ratio (6-22) Glucose (80-110) mg/dL Calcium (8.4-10.2) mg/dL Total Creatine Kinase (30-135) U/L CK-MB (CK-2) (<2.37) ng/mL CK-MB (CK-2) Rel Index (1.5-5.0) % Troponin I (0.01-0.034) ng/mL NT-Pro-B Natriuret Pep (<450) pg/mL Urine RBC (0-5/HPF) Urine WBC (0-5/HPF) Ur Squamous Epith Cells (0-5/HPF) Urine Bacteria (None) Hyaline Casts (None) Ur Culture Indicated? U Opiates 300ng/mL cut (Negative) Ur Oxycodone Screen (Negative) Urine Methadone Screen (Negative) Ur Barbiturates Screen (Negative) U Tricyclic Antidepress (Negative) Ur Phencyclidine Scrn (Negative) Ur Amphetamines Screen (Negative) U Methamphetamines Scrn (Negative) Ur MDMA Scrn (Ecstasy) (Negative) U Benzodiazepines Scrn (Negative) Urine Cocaine Screen (Negative) U Marijuana (THC) Screen (Negative) Ethyl Alcohol 21 H ( - 10) mg/dL COVID-19 PCR (Negative) 06/29/20 06/29/20 Range/Units 22:20 22:20 WBC (4.5-11.0) X10^3/uL RBC (4.0-5.2) X10^6/uL Hgb (12.0-16.0) g/dL Hct (36-46) % MCV (80-100) fL MCH (26-34) PG MCHC (30-36) % RDW (11.6-14.8) % Plt Count (150-400) X10^3/uL Neut % (Auto) (50-75) % Lymph % (Auto) (25-40) % [place] % (Auto) (3-14) % Eos % (Auto) (2-4) % Baso % (Auto) (0-2) % Neut # (Auto) (6655-1318) /uL Lymph # (Auto) (7083-4545) /uL [place] # (Auto) (0-900) /uL Eos # (Auto) (0-450) /uL Baso # (Auto) (0-100) /uL PT (10.1-12.7) SECONDS INR (0.9-1.3) APTT (26.4-36.2) SECONDS Sodium 139 (137-145) mmol/L Potassium 3.9 (3.4-5.1) mmol/L Chloride 106 (98-107) mmol/L Carbon Dioxide 30 (22-32) mmol/L BUN 17 (7-17) mg/dL Creatinine 0.64 (0.52-1.04) mg/dL Estimated GFR > 60.0 (>60) mL/min BUN/Creatinine Ratio 26.6 H (6-22) Glucose 85 (80-110) mg/dL Calcium 9.4 (8.4-10.2) mg/dL Total Creatine Kinase 377 H (30-135) U/L CK-MB (CK-2) 18.20 H (<2.37) ng/mL CK-MB (CK-2) Rel Index 4.8 (1.5-5.0) % Troponin I 0.064 H (0.01-0.034) ng/mL NT-Pro-B Natriuret Pep 5850 H (<450) pg/mL Urine RBC (0-5/HPF) Urine WBC (0-5/HPF) Ur Squamous Epith Cells (0-5/HPF) Urine Bacteria (None) Hyaline Casts (None) Ur Culture Indicated? U Opiates 300ng/mL cut (Negative) Ur Oxycodone Screen (Negative) Urine Methadone Screen (Negative) Ur Barbiturates Screen (Negative) U Tricyclic Antidepress (Negative) Ur Phencyclidine Scrn (Negative) Ur Amphetamines Screen (Negative) U Methamphetamines Scrn (Negative) Ur MDMA Scrn (Ecstasy) (Negative) U Benzodiazepines Scrn (Negative) Urine Cocaine Screen (Negative) U Marijuana (THC) Screen (Negative) Ethyl Alcohol ( - 10) mg/dL COVID-19 PCR (Negative) Urine Dip Bedside Urine Glucose Negative Bedside Urine Bilirubin - Negative Bedside Urine Ketone - Negative Urine Specific [place] 1.015 Bedside Urine Occult Blood + Bedside Urine pH 6.0 Bedside Urine Protein + 30 Bedside Urine Urobilinogen - Negative Bedside Urine Nitrite - Negative Bedside Urine Leukocytes +++ [address] scan - head: Radiologist's Impression: No acture intracranial findings Discharge Plan Departure Patient Disposition: Admitted As Inpatient Clinical Impression: Acute UTI, Acute metabolic encephalopathy Stroke Qualifiers: CVA mechanism: unspecified Qualified Code(s): I63.9 - Cerebral infarction, unspecified Discharge Date/Time: 06/30/20 01:42 Referrals: Jasmin De Los Santos ARNP [Primary Care Provider] - Admit Date/Time: 06/29/20 23:40 Admit Provider: Brittany Valles
[2020-06-29 22:30] LABS: Add Manual Diff / Slide Review NO; Basophils Absolute Auto 100 /uL (0-100); Basophils Percent Auto 0.7 % (0-2); Eosinophils Absolute Auto 100 /uL (0-450); Eosinophils Percent Auto 0.9 % (2-4); Hematocrit 38.6 % (36-46); Hemoglobin 12.7 g/dL (12.0-16.0); Lymphocytes Absolute Auto 1200 /uL (1100-4500); Lymphocytes Percent Auto 14.1 % (25-40); Mean Corpuscular HGB Conc 32.9 % (30-36); Mean Corpuscular Hemoglobin 31.3 PG (26-34); Mean Corpuscular Volume 94.9 fL (80-100); Monocytes Absolute Auto 700 /uL (0-900); Monocytes Percent Auto 8.7 % (3-14); Neutrophils Absolute Auto 6400 /uL (1500-7000); Neutrophils Percent Auto 75.6 % (50-75); Platelet Count 318 X10^3/uL (150-400); Red Blood Cell Count 4.07 X10^6/uL (4.0-5.2); Red Cell Distribution Width 13.8 % (11.6-14.8); White Blood Cell Count 8.4 X10^3/uL (4.5-11.0)
[2020-06-29] MEDS: SODIUM CHLORIDE 0.9% 1,000 ML 150 ML IV (22:30)
[2020-06-29] MEDS: ASPIRIN 81 MG CHEW TAB 324 MG PO (22:31)
[2020-06-29 22:33] VITALS: PULSE 74; O2SAT 90
[2020-06-29 22:42] LABS: INR 1.1 (0.9-1.3); Prothrombin Time 12.3 SECONDS (10.1-12.7)
[2020-06-29 22:44] LABS: Creatine Kinase 377 U/L (30-135)
[2020-06-29 22:45] LABS: BUN Creatinine Ratio 26.6 (6-22); Blood Urea Nitrogen 17 mg/dL (7-17); Calcium 9.4 mg/dL (8.4-10.2); Carbon Dioxide 30 mmol/L (22-32); Chloride 106 mmol/L (98-107); Estimated Glomerular Filt Rate > 60.0 mL/min (>60); Ethanol (ETOH) 21 mg/dL; Glucose 85 mg/dL (80-110); HEMOLYSIS 46 (0-50); PTT Partial Thromboplastin Tim 29 SECONDS (26.4-36.2); Potassium 3.9 mmol/L (3.4-5.1); Sodium 139 mmol/L (137-145)
[2020-06-29 22:48] LABS: COVID19 -Nasal RAPID Negative (Negative)
[2020-06-29 22:49] LABS: Ur Creatinine Normal (Normal); Ur Specific Gravity Normal (Normal); Urine pH Normal (Normal)
[2020-06-29 22:50] LABS: UR Morphine/Opiate cutoff 300 Negative (Negative); Urine Amphetamines Negative (Negative); Urine Barbiturates Negative (Negative); Urine Benzodiazepines Negative (Negative); Urine Cocaine Negative (Negative); Urine MDMA Negative (Negative); Urine Methadone Negative (Negative); Urine Methamphetamines Negative (Negative); Urine Oxycodone Negative (Negative); Urine Phencyclidine Negative (Negative); Urine Tetrahydrocannabinol Negative (Negative); Urine Tricyclic Antidepressant Negative (Negative)
[2020-06-29 22:57] LABS: NT-proBNP (BNP-Adult 18+) 5850 pg/mL (<450); Troponin I 0.064 ng/mL (0.01-0.034)
[2020-06-29 22:59] LABS: CKMB % Relative Index 4.8 % (1.5-5.0)
[2020-06-29 23:00] VITALS: PULSE 56; RESP 24; O2SAT 96
[2020-06-29 23:30] VITALS: PULSE 60; RESP 23; O2SAT 93
[2020-06-29 23:54] VITALS: BMI 21.9
[2020-06-30] VITALS (12 sets, daily range): BP systolic 128–197; BP diastolic 48–83; PULSE 55–74; RESP 14–22; TEMP 36.1–37.1; O2SAT 90–98
[2020-06-30 02:58] LABS: Magnesium 1.9 mg/dL (1.6-2.3)
--- NOTE | 2020-06-30 03:56 | PC.ADMIT ---
[id number] [facility] Admission Note: The patient,Teresa Monet,79 y/o, was given written information regarding hospital policies, unit procedures and contact persons. Patient's smoking status: Former smoker. Vital Signs - 8 hr 06/29/20 21:35 06/29/20 21:49 06/29/20 22:00 Temperature 97.7 F Pulse Rate 68 59 L 65 Respiratory Rate 18 19 23 Blood Pressure 179/71 H 186/87 H Pulse Oximetry 92 98 98 06/29/20 22:33 06/29/20 23:00 06/29/20 23:30 Temperature Pulse Rate 74 56 L 60 Respiratory Rate 24 23 Blood Pressure Pulse Oximetry 90 L 96 93 06/30/20 00:00 06/30/20 00:30 06/30/20 01:00 Temperature Pulse Rate 68 59 L 60 Respiratory Rate 18 22 14 Blood Pressure Pulse Oximetry 90 L 96 06/30/20 01:30 06/30/20 01:45 Temperature 96.9 F L Pulse Rate 62 65 Respiratory Rate 22 16 Blood Pressure 197/75 H Pulse Oximetry 96 94
--- NOTE | 2020-06-30 03:57 | PC.NURSE ---
Addendum entered by Dontrell Hendricks R.N. 06/30/20 06:29: correction = troponin = 0.07 Addendum entered by Dontrell Hendricks R.N. 06/30/20 06:28: Troponin increase to 0.7 - DELL Valles notified. Original Note: Pt arrived from ED at 0145 to room 210. Pt A&Ox3. Pt did not mention currently having any hallucinations. NIH score = 1 w/deficit in facial symmetry (L eybrow minor droop). Ambulates w/1 PA to toilet. Afib - 60-70 BPM, RA O2 sat 95%, BP running high w/SBP in 180's - orders for permissible hypertension. Pt states that she has 1 to 2 alcoholic drinks per night. Med req and admission completed. Pt instructed on fall risk and use of call light - stated understanding in use to prevent falls. Bed alarm on. Dysphagia diet/thin liquid. Swallow screen completed in ED.
--- NOTE | 2020-06-30 04:33 | P.HP_ITS ---
History of Present Illness History of Present Illness Date Patient Seen: 06/30/20 Time Patient Seen: 01:00 Chief complaint: hallucinations Narrative: Teresa Monet is a pleasant and talkative 79 year old female with a history of essential hypertension and atrial fibrillation not currently anticoagulated, and CHF who presented today with complaints of having visual hallucinations of her . It is difficult to appreciate her history due to her being very tangential in her conversations. She states she has a 1-2 week history of what she referred to his confusion and visual hallucinations her . She currently lives with her son and under 1 of the circumstances she stated that he was wearing her late 's jacket. She states that she has these visions of her late and then gets confused afterwards. She was brought in by her son because she was actively hallucinating and was also complaining of numbness and tingling in her left arm and leg. In the emergency department they did note that she her left extremities were drifting but not entirely falling. At that time and during my discussions with her she was a ppropriate. She denies difficulty with her vision, difficulty swallowing, headaches, chest pain, shortness of breath, nausea or vomiting, dysuria, or constipation. 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 She has had chronic diarrhea for which she takes medications for which she did not recall the name of and denied it was an Imodium. Head CT done in the emergency department reported age-appropriate brain parenchymal volume loss and chronic small vessel ischemic changes. She was found to have a urinary tract infection. She does deny that she is currently having a stroke because she states that it would of been sudden onset. 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 Patient was afebrile on presentation, blood pressure 156/71, heart rate of 55, respiratory rate 16, oxygen saturation of 92% on room air (to be put on one liter), she weighs 52.8 kg with a BMI of 21.9. CBC is largely within normal limits, BMP also within normal limits, she does have an elevated troponin of 0.064 which will be trended, brain atretic peptide is 5850, she has bacteria in her urine enough that it meets criteria for culture, she had a mildly elevated alcohol level of 21 and is COVID-19 negative Patient History Medical History Atrial fibrillation (Chronic 2012) AVM (arteriovenous malformation) (Chronic) Cerebral aneurysm (Resolved 1949) Chicken pox (Resolved 1948) Chronic headaches (Chronic) CTS (carpal tunnel syndrome) (Resolved 2004) Depression (Resolved 1984) Fibroids (Resolved 1988) Foot pain (Chronic) Hyperlipidemia (Chronic) Hypertension (Chronic) Lumbar spine pain (Chronic 1976) Measles (Resolved 1947) Migraines (Chronic) Ovarian cyst (Resolved 1956) Painful menstrual periods (Resolved 1951) Stroke (Resolved) Surgical History Anesthesia (Resolved) History of appendectomy (Resolved ~07/1990) History of bilateral salpingo-oophorectomy (BSO) History of carpal tunnel repair (Resolved 2004) Status post colonoscopy (Resolved 09/05/07) Status post endoscopy (Resolved 05/22/13) Status post epidural steroid injection (Resolved) Status post hysterectomy (Resolved ~07/1990) Family & Social History Family History Brother Coronary artery disease Myocardial infarction Father Kidney disease Glomerulonephritis Grandfather Heart disease Cerebrovascular accident (CVA), unspecified mechanism Grandmother Essential hypertension Mental health problem Vascular disease Mother Multiple myeloma Grandmother Gastric hemorrhage Essential hypertension High cholesterol Brother No problems noted. Grandfather Myocardial infarction Social History: household members none Prior Living Arrangements House Safety & Behavioral: Feels Safe in Current Yes Environment Been Physically Hurt or No Threatened By a Person Suicidal Ideation Description None Suicide Plan Description No Plan Tobacco & Substance use: Smoking Status Former smoker alcohol intake current alcohol intake frequency 0-2 drinks per day Substance Use Type does not use Meds Home Medications and Allergies Home Medications Medication Instructions Recorded Confirmed Type acetaminophen 325 mg capsule 325 mg PO QID PRN #90 cap 04/25/18 06/30/20 Rx lisinopril 20 mg tablet 20 mg PO DAILY 12/01/18 06/30/20 History CoQ-10 1 cap PO DAILY 01/16/19 06/30/20 History Lactobacillus acidophilus 1 cap PO PRN PRN 01/16/19 06/30/20 History [Acidophilus] alprazolam 0.25 mg PO BID PRN 01/16/19 06/30/20 History ascorbic acid (vitamin C) 1 tab PO DAILY 01/16/19 06/30/20 History echinacea 1 tab PO DAILY 01/16/19 06/30/20 History fluoxetine 10 mg PO DAILY 01/16/19 06/30/20 History [id number] acid-lutein [Centrum 1 tab PO DAILY 01/16/19 06/30/20 History Silver] naproxen 375 mg PO BID PRN 01/16/19 06/30/20 History vitamin E 400 unit PO DAILY 01/16/19 06/30/20 History zinc 1 tab PO DAILY 01/16/19 06/30/20 History Allergies Allergy/AdvReac Type Severity Reaction Status Date / Time latex Allergy Severe BREAKOUT Verified 06/29/20 21:35 prochlorperazine Allergy Severe TARDIVE Verified 06/29/20 21:35 DYSKINESIA Review of Systems Review of Systems ROS: Yes All systems reviewed with the patient and are negative except as otherwise documented Exam Vital Signs (past 8 hours): - 06/29/20 21:35 06/29/20 21:49 06/29/20 22:00 Temperature 97.7 F Pulse Rate 68 59 L 65 Respiratory Rate 18 19 23 Blood Pressure 179/71 H 186/87 H Pulse Oximetry 92 98 98 06/29/20 22:33 06/29/20 23:00 06/29/20 23:30 Temperature Pulse Rate 74 56 L 60 Respiratory Rate 24 23 Blood Pressure Pulse Oximetry 90 L 96 93 06/30/20 00:00 06/30/20 00:30 06/30/20 01:00 Temperature Pulse Rate 68 59 L 60 Respiratory Rate 18 22 14 Blood Pressure Pulse Oximetry 90 L 96 06/30/20 01:30 06/30/20 01:45 Temperature 96.9 F L Pulse Rate 62 65 Respiratory Rate 22 16 Blood Pressure 197/75 H Pulse Oximetry 96 94 Oxygen Delivery Method Room Air Oxygen Flow Rate 0 Narrative Exam Narrative: Gen: Alert, oriented, thin 79 y.o. female, very talkative HEENT: normocephalic, atraumatic, conjunctiva clear, sclera non-icteric, oral mucosa pink and moist Neck: supple, full ROM, no JVD, trachea is midline Resp: Lungs CTA, non-labored breathing CV: RRR, no murmur or rubs Abd: soft, non-tender, normoactive BTs Skin: no lesions or rashes, dry and intact Neuro: Alert and oriented X 4 w/no focal deficits. Speech clear and coherent. Somewhat tangential Extremities: +1 non-pitting edema, moves all 4 extremities, is ambulatory, negative Darrel?s sign Psyche: normal mood and affect. Objective Labs Result Diagrams: 06/29/20 22:20 06/29/20 22:20 Labs: Laboratory Results - last 24 hr 06/29/20 06/29/20 06/29/20 21:33 21:33 22:20 WBC RBC Hgb Hct MCV MCH MCHC RDW Plt Count Neut % (Auto) Lymph % (Auto) [place] % (Auto) Eos % (Auto) Baso % (Auto) Neut # (Auto) Lymph # (Auto) [place] # (Auto) Eos # (Auto) Baso # (Auto) PT INR APTT Sodium Potassium Chloride Carbon Dioxide BUN Creatinine Estimated GFR BUN/Creatinine Ratio Glucose Calcium Magnesium Total Creatine Kinase CK-MB (CK-2) CK-MB (CK-2) Rel Index Troponin I NT-Pro-B Natriuret Pep Urine RBC 1-5/hpf Urine WBC 1-5/hpf Ur Squamous Epith Cells 1-5 /hpf Urine Bacteria Few (2-10) H Hyaline Casts 0-1/lpf Ur Culture Indicated? Specimen cultured U Opiates 300ng/mL cut Negative Ur Oxycodone Screen Negative Urine Methadone Screen Negative Ur Barbiturates Screen Negative U Tricyclic Antidepress Negative Ur Phencyclidine Scrn Negative Ur Amphetamines Screen Negative U Methamphetamines Scrn Negative Ur MDMA Scrn (Ecstasy) Negative U Benzodiazepines Scrn Negative Urine Cocaine Screen Negative U Marijuana (THC) Screen Negative Ethyl Alcohol COVID-19 PCR Negative 06/29/20 06/29/20 06/29/20 22:20 22:20 22:20 WBC 8.4 RBC 4.07 Hgb 12.7 Hct 38.6 MCV 94.9 MCH 31.3 MCHC 32.9 RDW 13.8 Plt Count 318 Neut % (Auto) 75.6 H Lymph % (Auto) 14.1 L [place] % (Auto) 8.7 Eos % (Auto) 0.9 L Baso % (Auto) 0.7 Neut # (Auto) 6400 Lymph # (Auto) 1200 [place] # (Auto) 700 Eos # (Auto) 100 Baso # (Auto) 100 PT 12.3 INR 1.1 APTT 29 Sodium Potassium Chloride Carbon Dioxide BUN Creatinine Estimated GFR BUN/Creatinine Ratio Glucose Calcium Magnesium Total Creatine Kinase CK-MB (CK-2) CK-MB (CK-2) Rel Index Troponin I NT-Pro-B Natriuret Pep Urine RBC Urine WBC Ur Squamous Epith Cells Urine Bacteria Hyaline Casts Ur Culture Indicated? U Opiates 300ng/mL cut Ur Oxycodone Screen Urine Methadone Screen Ur Barbiturates Screen U Tricyclic Antidepress Ur Phencyclidine Scrn Ur Amphetamines Screen U Methamphetamines Scrn Ur MDMA Scrn (Ecstasy) U Benzodiazepines Scrn Urine Cocaine Screen U Marijuana (THC) Screen Ethyl Alcohol 21 H COVID-19 PCR 06/29/20 06/29/20 06/29/20 22:20 22:20 22:20 WBC RBC Hgb Hct MCV MCH MCHC RDW Plt Count Neut % (Auto) Lymph % (Auto) [place] % (Auto) Eos % (Auto) Baso % (Auto) Neut # (Auto) Lymph # (Auto) [place] # (Auto) Eos # (Auto) Baso # (Auto) PT INR APTT Sodium 139 Potassium 3.9 Chloride 106 Carbon Dioxide 30 BUN 17 Creatinine 0.64 Estimated GFR > 60.0 BUN/Creatinine Ratio 26.6 H Glucose 85 Calcium 9.4 Magnesium 1.9 Total Creatine Kinase 377 H CK-MB (CK-2) 18.20 H CK-MB (CK-2) Rel Index 4.8 Troponin I 0.064 H NT-Pro-B Natriuret Pep 5850 H Urine RBC Urine WBC Ur Squamous Epith Cells Urine Bacteria Hyaline Casts Ur Culture Indicated? U Opiates 300ng/mL cut Ur Oxycodone Screen Urine Methadone Screen Ur Barbiturates Screen U Tricyclic Antidepress Ur Phencyclidine Scrn Ur Amphetamines Screen U Methamphetamines Scrn Ur MDMA Scrn (Ecstasy) U Benzodiazepines Scrn Urine Cocaine Screen U Marijuana (THC) Screen Ethyl Alcohol COVID-19 PCR Assessment & Plan Assessment & Plan narrative: Teresa Monet will be admitted to the inpatient unit for further evaluation and treatment for a suspected CVA Suspected TIA versus stroke, acute, present on admission -initiate clopidogrel 75 mg p.o. daily and aspirin 81 mg p.o. daily -MR stroke scheduled for this morning -Complete Echo for this morning Acute on chronic CHF exacerbation, with a proBnp of of 5850 -She is given furosemide 20 mg X 1 and her fluids shut off -Monitor for LE edema Elevated troponin present on admission of 0.064 -EKG indicates atrial fibrillation with an age undetermined septal infarct -Next troponin is due at 0500 -Suspected to be demand ischemia in the setting of a CHF exacerbation Urinary tract infection, asymptomatic, but present on admission -She was initiated on ceftriaxone 1 gram daily in the ED and will be continued Hypertension, acute with an admission bp of 179/71, present on admission -Allow for permissive hypertension of 220/110 HR 60 to allow for brain perfusion -She will be continued on her home dose of Lisinopril 20 mg po daily HLD -Lipid panel, pending -Start Atorvastatin 40 mg po at bedtime Risk stratification -Fasting lipid panel in the am -A1c pending% VTE prophylaxis: Caprini risk score: 4 moderate risk Enoxaparin 40 mg subQ daily Consults: none Patient is admitted under inpatient status with expected length of stay greater than 2 midnights due to severity of presenting symptoms, risk of adverse event, and complexity of treatment plan. FEN: iv saline lock, heart healthy diet, BMP and magnesium in the am. Dispo: Likely return to home, possibly consider assisted living Code Status: Full code as discussed with patient Quality VTE Deep Vein Thrombosis/Pulmonary Embolism Present on Admission: No
[2020-06-30] MEDS: FUROSEMIDE 20 MG/2 ML VIAL IV (05:42)
[2020-06-30 06:04] LABS: Add Manual Diff / Slide Review NO; Basophils Absolute Auto 0 /uL (0-100); Basophils Percent Auto 0.4 % (0-2); Eosinophils Absolute Auto 100 /uL (0-450); Eosinophils Percent Auto 1.8 % (2-4); Hematocrit 38.9 % (36-46); Hemoglobin 12.9 g/dL (12.0-16.0); Lymphocytes Absolute Auto 1100 /uL (1100-4500); Lymphocytes Percent Auto 13.7 % (25-40); Mean Corpuscular Hemoglobin 31.4 PG (26-34); Monocytes Absolute Auto 700 /uL (0-900); Monocytes Percent Auto 8.5 % (3-14); Neutrophils Absolute Auto 6000 /uL (1500-7000); Neutrophils Percent Auto 75.6 % (50-75); Platelet Count 326 X10^3/uL (150-400); Red Cell Distribution Width 13.9 % (11.6-14.8); White Blood Cell Count 7.9 X10^3/uL (4.5-11.0)
[2020-06-30 06:09] LABS: BUN Creatinine Ratio 24.2 (6-22); Blood Urea Nitrogen 15 mg/dL (7-17); Calcium 9.1 mg/dL (8.4-10.2); Carbon Dioxide 30 mmol/L (22-32); Chloride 105 mmol/L (98-107); Cholesterol 211 mg/dL (140-199); Estimated Glomerular Filt Rate > 60.0 mL/min (>60); Glucose 82 mg/dL (80-110); HDL Cholesterol 74 mg/dL (40-60); HEMOLYSIS < 15 (0-50); LDL Cholesterol Calculated 122 mg/dL (<100); Potassium 3.4 mmol/L (3.4-5.1); Sodium 139 mmol/L (137-145); Triglycerides 74 mg/dL (35-150)
[2020-06-30 06:20] LABS: Hemoglobin A1C% w Est Avg Glu 5.7 % (4.0-6.0)
[2020-06-30 06:41] LABS: Thyroid Stimulating Hormone 5.49 uIU/mL (0.47-4.68)
[2020-06-30 08:19] LABS: Creatine Kinase 297 U/L (30-135)
--- NOTE | 2020-06-30 08:27 | DI.MRI.S_ITS ---
PROCEDURE: MR STROKE Pre- and post-contrast brain MRI, non-contrast brain MR angiogram, pre- and postcontrast neck MR angiogram INDICATIONS: CVA TECHNIQUE: Brain: Noncontrast axial T1 spin echo, axial T2 fast spin echo, sagittal and axial FLAIR, coronal T2 fast spin echo, axial gradient echo, axial diffusion and ADC through the brain. After the administration of contrast, axial 3D VIBE of the cranial vasculature and brain. Brain MRA: Non-contrast 3-D time of flight MR angiogram, with multiple rqxlrch-hxzzjdctn-lzizqdcrbl (MIP) reformats performed. Neck MRA: Axial and sagittal TruFISP through the neck. Coronal dynamic MR angiogram during administration of contrast in the arterial and venous phases, with 3-dimenstional kuyvxcc-euuwrzjqa-mfcdfzldsw (MIP) reformats constructed from subtraction images. COMPARISON: [facility], CT, CT HEAD/BRAIN WO CON, 06/29/2020, 22:10. [facility], MR, STROKE PROTOCOL, 04/28/2013, 17:19. FINDINGS: Image quality: This examination is limited by involuntary motion artifact. BRAIN: CSF spaces: Ventricles are normal in size and shape. Basal cisterns are patent. No extra-axial fluid collections. Brain: No intracranial bleeds or mass effects. Ol[place]-white matter interface is normal. Diffusion weighted images show no acute ischemic insults. Within the posterior aspect of the right cerebral hemisphere, there is a remote infarction seen, with associated brain parenchymal volume loss and encephalomalacia. Generalized brain parenchymal volume loss is seen. Age-appropriate chronic small vessel ischemic change is seen. Brainstem appears normal. No abnormal intracranial enhancement. Skull and face: Calvarial marrow signal is normal. Orbits appear normal. Note is made of bilateral lens replacements. Sinuses: Sinuses and mastoids are clear. BRAIN MR ANGIOGRAM: Anterior circulation: There is no flow within the right internal carotid artery. The flow within the paired anterior cerebral arteries is normal and symmetric. The flow within the middle cerebral arteries is asymmetric and slightly reduced on the right side compared to the left.. The anterior communicating artery is seen. No stenoses, occlusions, or aneurysms. Posterior circulation: The visualized portions of the vertebral arteries demonstrate normal caliber, and join to form a normal appearing basilar artery. The flow within the posterior cerebral arteries is normal and symmetric. No stenoses, occlusions, or aneurysms. NECK MR ANGIOGRAM: Carotids: Great vessels demonstrate a conventional anatomy as they arise from the aortic arch. The origins of the common carotid arteries appear patent. The calibers and courses of both common carotid arteries are normal. 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 There is atherosclerotic irregularity seen involving the left proximal internal carotid artery, with an approximately 30% stenosis. Posterior circulation: The origins of the vertebral arteries appear patent. More superior portions of both vertebral arteries demonstrate normal course and caliber, and join to form a normal appearing basilar artery. Miscellaneous: Subclavian arteries appear patent. Pre-contrast images through the neck show no soft tissue abnormalities. IMPRESSION: BRAIN MRI: No findings of acute or subacute infarction can be seen. 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 No masses or abnormal enhancement can be seen. Note is made of age-appropriate brain parenchymal volume loss and chronic small vessel ischemic changes. BRAIN MR ANGIOGRAM: No flow is seen within the right internal carotid artery. The left anterior cerebral artery and middle cerebral artery are supplied from the left side, across the anterior communicating artery. There is slightly decreased flow seen within the right middle cerebral artery compared to the left middle cerebral artery. 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 Approximately 30% narrowing can be seen involving the proximal left internal carotid artery. Dictated by: Archie Asher M.D. on 06/30/2020 at 13:14 Approved by: Archie Asher M.D. on 06/30/2020 at 13:20
[2020-06-30 08:34] LABS: CKMB % Relative Index 4.9 % (1.5-5.0)
[2020-06-30 08:36] LABS: Free T4, Direct Thyroxine 1.32 ng/dL (0.78-2.19)
[2020-06-30 08:39] LABS: Procalcitonin < 0.05 ng/mL (<0.5)
[2020-06-30 08:50] LABS: Procalcitonin < 0.05 ng/mL (<0.5)
[2020-06-30] MEDS: lisinopriL 20 MG TABLET PO (08:59)
[2020-06-30] MEDS: ENOXAPARIN 40 MG/0.4 ML SYRINGE SUBCUT (08:59)
[2020-06-30] MEDS: ASPIRIN EC 81 MG TABLET PO (08:59)
--- NOTE | 2020-06-30 11:40 | PT.IIE ---
Surgical History (Last Reviewed 06/29/20 @ 22:43 by Trent Trivedi DO) Anesthesia (Resolved) History of appendectomy (Resolved ~07/1990) History of bilateral salpingo-oophorectomy (BSO) History of carpal tunnel repair (Resolved 2004) Status post colonoscopy (Resolved 09/05/07) Status post endoscopy (Resolved 05/22/13) Status post epidural steroid injection (Resolved) Status post hysterectomy (Resolved ~07/1990) Medical History (Last Reviewed 06/29/20 @ 22:43 by Trent Trivedi DO) Atrial fibrillation (Chronic 2012) AVM (arteriovenous malformation) (Chronic) Cerebral aneurysm (Resolved 1949) Chicken pox (Resolved 1948) Chronic headaches (Chronic) CTS (carpal tunnel syndrome) (Resolved 2004) Depression (Resolved 1984) Fibroids (Resolved 1988) Foot pain (Chronic) Hyperlipidemia (Chronic) Hypertension (Chronic) Lumbar spine pain (Chronic 1976) Measles (Resolved 1947) Migraines (Chronic) Ovarian cyst (Resolved 1956) Painful menstrual periods (Resolved 1951) Stroke (Resolved) Physical Therapy Inpatient Evaluation/Re-Eval M1 PT/OT-IP Prior Functional Status Start: 06/30/20 09:26 Freq: NEEDED Status: Active Protocol: Document 06/30/20 11:40 AW (Rec: 06/30/20 13:43 AW [id number]) Medical Review Prior Functional Status Medical History Reviewed Yes Communication Pt is an effective verbal communicator. On evaluation, she perseverates on nursing tasks. Her son describes her as extremely intelligent but she uses it as a cover for declining cognition. Mobility and Gait Pt is independent with household mobility but states she often reaches for nascimento and furniture as she is moving about. Pt states she has been walking around her property as well but that she is extremely cautious. Pt reports falling ~once every other month and also endorses multiple near falls. Activities of Daily Living and IADL's Independent with all ADL's. Pt drives, shops, cooks, manages her medications and finances. Pt's son, Hi, states the pt has fallen behind on bills and shows other signs of disorganization which is not typical for her such as misplacing paperwork to establish with new physician. Prior Functional Level (Other details) Pt's son, Hi, checks on her a few times per week. Pt also has a buggyman who was hired by Hi and helps out a few times per week. Hi states he attempted to move the pt to his large home at the beginning of COVID lockdown but that she became agitated and threatened to call the police if she could not return home after just a few days. Social History Household Members none Living Arrangements House Number of Floors (Floors) Two Floors Number of Stairs To Enter/Railing? 8 steps + landing + 6 steps all with narrow bilateral rails to enter at main living level. On the ground level, there is a basement which pt will often access from outside the home. 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 She lives alone in [facility]. M2 PT-IP Current Condition Start: 06/30/20 09:26 Freq: NEEDED Status: Active Protocol: Document 06/30/20 11:40 AW (Rec: 06/30/20 13:43 AW [id number]) Physical Therapy Current Condition Current Condition Evaluation Date 06/30/20 Treatment Diagnosis UTI, hallucinations, balance disturbance, difficulty in walking Onset Date 06/29/20 Precautions Other Precautions high falls risk M3 PT-IP Subjective Start: 06/30/20 09:26 Freq: NEEDED Status: Active Protocol: Document 06/30/20 11:40 AW (Rec: 06/30/20 13:43 AW [id number]) Subjective Physical Therapy Visit Type Type Initial Evaluation Visit Start Time 11:05 Visit Stop Time 01:39 Total Visit Minutes 34 Notes Pt is pleasant and willing to participate with PT Physical Therapy Visit Comments Patient Comments I'm feeling fine today. Patient Goals Pt hopes to return home at discharge. Therapy Pain Assessment Pain When Pain Assessed During Mobility Pain Present Pain Present Denied Pain M4 PT-IP Mobility and Gait Start: 06/30/20 09:26 Freq: NEEDED Status: Active Protocol: Document 06/30/20 11:40 AW (Rec: 06/30/20 13:43 AW [id number]) PT-Bed Mobility Assessment Supine to Sit Supine to Sit Independent Scooting Scooting to Edge of Bed Independent Scooting Up and Down in Bed Independent PT-Transfer Assessment Sit to and From Stand Sit to and from Stand Standby Assistance Equipment Transfer Assistive Device Gait Belt Transfers Transfer Destination Chair,Toilet Transfer Technique pt ambulated without AD Transfer Ability Level of Assist Standby Assistance Comments Mobility Comments Pt was lying in bed as PT arrived. She completed all bed mobility IND and then stood EOB SBA due to initial unsteadiness. She ambulated in the room and transferred to and from the toilet SBA with use of left-sided grab bar. She ambulated in the halls with SBA to CGA required for unsteadiness and lateral LOB x 3. On return to the room, she transferred to the chair SBA where she was positioned with call light and all needs in reach. PT notified TERRAZZO WORKER HELPER of need to place a chair alarm for safety. Gait Assessment Gait Gait Assistance Required: Standby Assistance,Contact Guard Assist Distance (Feet) 100 Assistive Devices Assistive Device Gait Belt Gait Deviations General Gait Pattern Decreased Stride Length, Decreased Feet Clearance, Flexed Trunk,Lateral Trunk Lean Factors Limiting Gait Function Factors Limiting Gait Function Decreased Activity Tolerance, Decreased Strength,Poor Balance,Poor Safety Awareness Comments Gait Comments See mobility comments for details. Pt required assist for balance recovery and for obstacle navigation in the halls. Stair Climbing Assessment Evaluation Level of Assist On Stairs Standby Assistance Devices Stair Climbing Assistive Devices Left Railing,Right Railing Technique/Endurance Stair Climbing Direction Ascend and Descend Stair Climbing Technique Step to Step Number of Steps Climbed 3 Query Text: Stair Climbing Set # Repetitions (reps) 3 PT-Balance Assessment Sitting Balance and Reactions Static Sitting Balance Ability Normal Dynamic Sitting Balance Ability Good Standing Balance and Reactions Static Standing Balance Ability Good Dynamic Standing Balance Ability Fair Device Used no AD Balance Tests Single Limb Standing <2 sec bilaterally Tandem Standing unable M5 PT-IP Objective Assessments Start: 06/30/20 09:26 Freq: NEEDED Status: Active Protocol: Document 06/30/20 11:40 AW (Rec: 06/30/20 13:43 AW [id number]) Orientation Orientation/Cognition Level of Alertness Confusional State Orientation Name,Day of Week,Place, Situation Language Function Ability No Deficits Noted Safety Awareness Decreased Safety Awareness Memory Description Short Term Impaired,Fdc Impaired Comments Pt is oriented but appears confused. During eval, pt presents with perseverating on items in the room and nursing tasks. She underreports falls according to her son and seems to have poor insight into her condition. Gross Range of Motion Upper Extremity ROM Assessment Within Functional Limits Lower Extremity ROM Assessment Within Functional Limits Strength Upper Extremity Strength Assessment Within Functional Limits Lower Extremity Strength Assessment Within Functional Limits Comments Strength Comments BLE grossly 4+/5 Coordination Assessment Gross Coordination Gross Coordination WNL Assessment Finger to Nose Test Normal Performance Sensation Assessment Sensation Gross Sensation WNL Muscle Tone Muscle Tone WNL Yes Other Assessments Other Other Assessments 3+ pitting edema distal LLE. M6 PT-IP Treatment Start: 06/30/20 09:26 Freq: NEEDED Status: Active Protocol: Document 06/30/20 11:40 AW (Rec: 06/30/20 13:43 AW [id number]) Physical Therapy Treatment Education Education Provided Safety Other Treatments Other Treatment Performed Provided education on role of PT, plan of care, and safety in the home. Also discussed potential benefits of HH PT to address home safety. M7 PT-IP Assessment and Plan Start: 06/30/20 09:26 Freq: NEEDED Status: Active Protocol: Document 06/30/20 11:40 AW (Rec: 06/30/20 13:43 AW [id number]) PT Summary Assessment and Plan Potential Rehabilitation Potential Good Status of Condition at Evaluation Stable Summary Impairments Strength,Balance,Cognition, Transfers,Gait Assessment Summary Teresa is an 79 yo woman seen for PT evaluation after being admitted with reports of visual hallucinations, balance disturbance, and findings of UTI. She lives alone with frequent check-ins from her son and a buggyman. Pt's son reports progressive cognitive decline with evidence of unpaid bills and missing paperwork which he states is not consistent with her baseline. On evaluation, pt is unsteady during gait without assistive device. She states she will not use an AD and that walkers would not likely fit through her narrow doors at home. Pt appears to be unsafe for discharge to home with current level of support. Increased assisted/ caregiver support would increase her safety. She would also certainly benefit from home health PT to address balance and gait disturbances as well as to reduce risk of further falls. Goals Transfer Goal Independent Gait Goal Independent Gait Distance 200 Other Goals - up/down 14 steps with B rails SBA Days to Meet Goals 5 Frequency of Treatment Frequency Of Treatment Once a Day Treatment Plan Physical Therapy Treatment Plan Bed Mobility Training,Transfer Training,Gait Training, Therapeutic Exercise,Balance Retraining,Discharge Planning, Neuromuscular Re-ed, Coordination Retraining Other Recommendations and Next Treatment gait training; balance Focus interventions Recommendations To Nursing Amount of Assist Needed Standby Assistance Discharge Recommendations PT Discharge Recommendations Home with Assistance,Home Health Other Discharge Recommendations Home with increased support and PT Transportation Needs at Discharge Private Vehicle
--- NOTE | 2020-06-30 12:51 | ST.IPIE ---
Visit Care Team Role Provider Type BENJI Sanz Primary Care Provider Advanced Ict Trainer Specialty: Family Practice Address: [address] [place] [address], [id number] Email: [email or web address] Trent Trivedi DO Emergency Provider Physician Referring Provider Specialty: Emergency Medicine Address: [address] [place] [address], [address] Email: [email or web address] Admit Provider Physician Attending Provider Specialty: Internal Medicine Address: [address] [place] [address], [address] Email: [email or web address] Past Medical History (Last Reviewed 06/29/20 @ 22:43 by Trent Trivedi DO) Atrial fibrillation (Chronic Medical 2012) Aspirin therapy only AVM (arteriovenous malformation) (Chronic Medical) And bleed Cerebral aneurysm (Resolved Medical 1949) Bleed x 3 - 1949, 1956, 1977 Chicken pox (Resolved Medical 1948) Chronic headaches (Chronic Medical) CTS (carpal tunnel syndrome) (Resolved Medical 2004) Right Depression (Resolved Medical 1984) Temp 1985 Fibroids (Resolved Medical 1988) Foot pain (Chronic Medical) Hyperlipidemia (Chronic Medical) Hypertension (Chronic Medical) Lumbar spine pain (Chronic Medical 1976) Measles (Resolved Medical 1947) Migraines (Chronic Medical) Ovarian cyst (Resolved Medical 1956) Painful menstrual periods (Resolved Medical 1951) [id number] Stroke (Resolved Medical) 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 HEART 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 bleed prior to 1976 x3; no source identified MRI 2014 [facility] Initial Evaluation Report DIVING SUPERVISOR Clinical Swallow Evaluation Start: 06/30/20 12:40 Freq: Status: Active Protocol: Document 06/30/20 12:40 MG (Rec: 06/30/20 12:51 MG [id number]) Clinical Swallow Evaluation Session Time Visit Start Date 06/30/20 Visit Start Time 10:27 Visit Stop Time 10:50 Total Visit Minutes 23 Visit Information Visit Number 1 Setting Assessment Location Acute Care Visit Type Note Type Initial evaluation Patient Information Identification Type Name,Wristband History Teresa Monet is a pleasant and talkative 79 year old female with a history of essential hypertension and atrial fibrillation not currently anticoagulated, and CHF who presented today with complaints of having visual hallucinations of her . It is difficult to appreciate her history due to her being very tangential in her conversations. She states she has a 1-2 week history of what she referred to his confusion and visual hallucinations her . She currently lives with her son and under 1 of the circumstances she stated that he was wearing her late 's jacket. She states that she has these visions of her late and then gets confused afterwards. She was brought in by her son because she was actively hallucinating and was also complaining of numbness and tingling in her left arm and leg. In the emergency department they did note that she her left extremities were drifting but not entirely falling. At that time and during the discussions with her she was appropriate. She denies difficulty with her vision, difficulty swallowing, headaches, chest pain, shortness of breath, nausea or vomiting, dysuria, or constipation. Subjective Observations Pt was resting in bed upon DIVING SUPERVISOR entry. Pt was asleep but could be aroused for ST evaluation. Pt is a soft spoken individual. Pt reported that when she was younger she had the option of doing voice therapy, however her family did not take her to treatment. Pt reports that she is not interested in voice therapy as she is very happy and content with her voice. Per nurse, she is tolerating her diet and she is intelligible when she speaks. Reported by Patient Current Diet Regular,Thin liquids Baseline Feeding Method Independent in self-feeding Objective Assessment Mental Status Alert,Responsive,Cooperative Oral Integrity WFL Dentition Missing teeth Lip Function Within normal limits Observation of Lips at Rest Symmetrical Pucker Within normal limits Lip Retraction Within normal limits Alternating Pucker/Lip Retraction Within normal limits Tongue Function Within normal limits Tongue Protrusion Within normal limits Tongue Retraction Within normal limits Tongue Lateralization Within normal limits Jaw Function Within normal limits Observations of Jaw at Rest Within normal limits Jaw Opening Within normal limits Jaw Closing Within normal limits Hard/Soft Palate Function Within normal limits Observations of Hard/Soft Palate Within normal limits Nasality Within normal limits Phonation Breathy,Reduced loudness Comment Formal OME indicates no abnormal weakness at this time . Pt is 100% intelligible and answered all questions appropriately. Pt's voice is breathy and soft, however she reports that that is normal for her and she is not interested in voice therapy at this time. Food and Liquid Trials Position During Assessment Upright (90 degrees) Liquids Trialed Thin Solids Trialed Regular Oral Impairment Within functional limits Oral Phase Comments Swallow screening indicates pt can masticate solid food appropriately and thoroughly. No anterior spillage observed . Pharyngeal Impairment Within functional limits Pharyngeal Phase Comments Swallow screening indicates pt can tolerate current diet at this time. Throughout all trials, no overt s/sx of aspiration were noted. No wet/ gurgly voice or throat clear/ cough heard. Fatigue/Endurance Endurance WNL Findings Swallowing Function Within functional limits Severity of Swallow Impairment Within functional limits Recommendations Instrumental Assessment No Swallowing Treatment No Recommended Solids Regular Recommended Liquids Thin Medication Recommendations As Tolerated Education Patient/Caregiver Education Described results of evaluation,Patient expressed understanding of evaluation, Patient expressed agreement with goals & treatment plans
[2020-06-30 17:40] LABS: Troponin I 0.064 ng/mL (0.01-0.034)
--- NOTE | 2020-06-30 17:44 | PM.PN.1 ---
Subjective Subjective Date Patient Seen: 06/30/20 Interval history: Brief progress note: Patient seen and examined. Physical exam unchanged. Patient with subtle left upper extremity weakness, intermittent hallucinations, imbalance and personality changes per son at bedside. 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 Plan to discuss MRI findings with vascular surgery and obtain recs regarding occluded right ICA in patient with right sided CVA. Continue to monitor patient closely and otherwise previously outlined A&P. Exam Vital Signs (past 8 hours): - 06/30/20 16:06 06/30/20 19:47 Temperature 98.7 F 97.8 F Pulse Rate 62 73 Respiratory Rate 18 18 Blood Pressure 128/56 L 159/63 H Pulse Oximetry 95 Oxygen Delivery Method Room Air Oxygen Flow Rate 0 Objective Labs Result Diagrams: 06/30/20 05:30 06/30/20 05:30 Labs: Laboratory Results - last 24 hr 06/29/20 06/29/20 06/29/20 21:33 21:33 22:20 WBC RBC Hgb Hct MCV MCH MCHC RDW Plt Count Neut % (Auto) Lymph % (Auto) [place] % (Auto) Eos % (Auto) Baso % (Auto) Neut # (Auto) Lymph # (Auto) [place] # (Auto) Eos # (Auto) Baso # (Auto) PT INR APTT Sodium Potassium Chloride Carbon Dioxide BUN Creatinine Estimated GFR BUN/Creatinine Ratio Glucose Hemoglobin A1c Calcium Magnesium Total Creatine Kinase CK-MB (CK-2) CK-MB (CK-2) Rel Index Troponin I NT-Pro-B Natriuret Pep Triglycerides Cholesterol LDL Cholesterol, Calc HDL Cholesterol Procalcitonin TSH Free T4 Urine RBC 1-5/hpf Urine WBC 1-5/hpf Ur Squamous Epith Cells 1-5 /hpf Urine Bacteria Few (2-10) H Hyaline Casts 0-1/lpf Ur Culture Indicated? Specimen cultured U Opiates 300ng/mL cut Negative Ur Oxycodone Screen Negative Urine Methadone Screen Negative Ur Barbiturates Screen Negative U Tricyclic Antidepress Negative Ur Phencyclidine Scrn Negative Ur Amphetamines Screen Negative U Methamphetamines Scrn Negative Ur MDMA Scrn (Ecstasy) Negative U Benzodiazepines Scrn Negative Urine Cocaine Screen Negative U Marijuana (THC) Screen Negative Ethyl Alcohol COVID-19 PCR Negative 06/29/20 06/29/20 06/29/20 22:20 22:20 22:20 WBC 8.4 RBC 4.07 Hgb 12.7 Hct 38.6 MCV 94.9 MCH 31.3 MCHC 32.9 RDW 13.8 Plt Count 318 Neut % (Auto) 75.6 H Lymph % (Auto) 14.1 L [place] % (Auto) 8.7 Eos % (Auto) 0.9 L Baso % (Auto) 0.7 Neut # (Auto) 6400 Lymph # (Auto) 1200 [place] # (Auto) 700 Eos # (Auto) 100 Baso # (Auto) 100 PT 12.3 INR 1.1 APTT 29 Sodium Potassium Chloride Carbon Dioxide BUN Creatinine Estimated GFR BUN/Creatinine Ratio Glucose Hemoglobin A1c Calcium Magnesium Total Creatine Kinase CK-MB (CK-2) CK-MB (CK-2) Rel Index Troponin I NT-Pro-B Natriuret Pep Triglycerides Cholesterol LDL Cholesterol, Calc HDL Cholesterol Procalcitonin TSH Free T4 Urine RBC Urine WBC Ur Squamous Epith Cells Urine Bacteria Hyaline Casts Ur Culture Indicated? U Opiates 300ng/mL cut Ur Oxycodone Screen Urine Methadone Screen Ur Barbiturates Screen U Tricyclic Antidepress Ur Phencyclidine Scrn Ur Amphetamines Screen U Methamphetamines Scrn Ur MDMA Scrn (Ecstasy) U Benzodiazepines Scrn Urine Cocaine Screen U Marijuana (THC) Screen Ethyl Alcohol 21 H COVID-19 PCR 06/29/20 06/29/20 06/29/20 22:20 22:20 22:20 WBC RBC Hgb Hct MCV MCH MCHC RDW Plt Count Neut % (Auto) Lymph % (Auto) [place] % (Auto) Eos % (Auto) Baso % (Auto) Neut # (Auto) Lymph # (Auto) [place] # (Auto) Eos # (Auto) Baso # (Auto) PT INR APTT Sodium 139 Potassium 3.9 Chloride 106 Carbon Dioxide 30 BUN 17 Creatinine 0.64 Estimated GFR > 60.0 BUN/Creatinine Ratio 26.6 H Glucose 85 Hemoglobin A1c Calcium 9.4 Magnesium 1.9 Total Creatine Kinase 377 H CK-MB (CK-2) 18.20 H CK-MB (CK-2) Rel Index 4.8 Troponin I 0.064 H NT-Pro-B Natriuret Pep 5850 H Triglycerides Cholesterol LDL Cholesterol, Calc HDL Cholesterol Procalcitonin TSH Free T4 Urine RBC Urine WBC Ur Squamous Epith Cells Urine Bacteria Hyaline Casts Ur Culture Indicated? U Opiates 300ng/mL cut Ur Oxycodone Screen Urine Methadone Screen Ur Barbiturates Screen U Tricyclic Antidepress Ur Phencyclidine Scrn Ur Amphetamines Screen U Methamphetamines Scrn Ur MDMA Scrn (Ecstasy) U Benzodiazepines Scrn Urine Cocaine Screen U Marijuana (THC) Screen Ethyl Alcohol COVID-19 PCR 06/29/20 06/30/20 06/30/20 22:20 05:30 05:30 WBC 7.9 RBC 4.10 Hgb 12.9 Hct 38.9 MCV 95.0 MCH 31.4 MCHC 33.0 RDW 13.9 Plt Count 326 Neut % (Auto) 75.6 H Lymph % (Auto) 13.7 L [place] % (Auto) 8.5 Eos % (Auto) 1.8 L Baso % (Auto) 0.4 Neut # (Auto) 6000 Lymph # (Auto) 1100 [place]ward # (Auto) 700 Eos # (Auto) 100 Baso # (Auto) 0 PT INR APTT Sodium 139 Potassium 3.4 Chloride 105 Carbon Dioxide 30 BUN 15 Creatinine 0.62 Estimated GFR > 60.0 BUN/Creatinine Ratio 24.2 H Glucose 82 Hemoglobin A1c Calcium 9.1 Magnesium Total Creatine Kinase CK-MB (CK-2) CK-MB (CK-2) Rel Index Troponin I 0.070 H NT-Pro-B Natriuret Pep Triglycerides 74 Cholesterol 211 H LDL Cholesterol, Calc 122 H HDL Cholesterol 74 H Procalcitonin < 0.05 TSH Free T4 Urine RBC Urine WBC Ur Squamous Epith Cells Urine Bacteria Hyaline Casts Ur Culture Indicated? U Opiates 300ng/mL cut Ur Oxycodone Screen Urine Methadone Screen Ur Barbiturates Screen U Tricyclic Antidepress Ur Phencyclidine Scrn Ur Amphetamines Screen U Methamphetamines Scrn Ur MDMA Scrn (Ecstasy) U Benzodiazepines Scrn Urine Cocaine Screen U Marijuana (THC) Screen Ethyl Alcohol COVID-19 PCR 06/30/20 06/30/20 06/30/20 05:30 05:30 05:30 WBC RBC Hgb Hct MCV MCH MCHC RDW Plt Count Neut % (Auto) Lymph % (Auto) [place] % (Auto) Eos % (Auto) Baso % (Auto) Neut # (Auto) Lymph # (Auto) [place] # (Auto) Eos # (Auto) Baso # (Auto) PT INR APTT Sodium Potassium Chloride Carbon Dioxide BUN Creatinine Estimated GFR BUN/Creatinine Ratio Glucose Hemoglobin A1c 5.7 Calcium Magnesium Total Creatine Kinase CK-MB (CK-2) CK-MB (CK-2) Rel Index Troponin I NT-Pro-B Natriuret Pep Triglycerides Cholesterol LDL Cholesterol, Calc HDL Cholesterol Procalcitonin < 0.05 TSH 5.49 H Free T4 Urine RBC Urine WBC Ur Squamous Epith Cells Urine Bacteria Hyaline Casts Ur Culture Indicated? U Opiates 300ng/mL cut Ur Oxycodone Screen Urine Methadone Screen Ur Barbiturates Screen U Tricyclic Antidepress Ur Phencyclidine Scrn Ur Amphetamines Screen U Methamphetamines Scrn Ur MDMA Scrn (Ecstasy) U Benzodiazepines Scrn Urine Cocaine Screen U Marijuana (THC) Screen Ethyl Alcohol COVID-19 PCR 06/30/20 06/30/20 06/30/20 05:30 05:30 11:15 WBC RBC Hgb Hct MCV MCH MCHC RDW Plt Count Neut % (Auto) Lymph % (Auto) [place] % (Auto) Eos % (Auto) Baso % (Auto) Neut # (Auto) Lymph # (Auto) [place] # (Auto) Eos # (Auto) Baso # (Auto) PT INR APTT Sodium Potassium Chloride Carbon Dioxide BUN Creatinine Estimated GFR BUN/Creatinine Ratio Glucose Hemoglobin A1c Calcium Magnesium Total Creatine Kinase 297 H CK-MB (CK-2) 14.70 H CK-MB (CK-2) Rel Index 4.9 Troponin I Cancelled 0.070 H NT-Pro-B Natriuret Pep Triglycerides Cholesterol LDL Cholesterol, Calc HDL Cholesterol Procalcitonin TSH Free T4 1.32 Urine RBC Urine WBC Ur Squamous Epith Cells Urine Bacteria Hyaline Casts Ur Culture Indicated? U Opiates 300ng/mL cut Ur Oxycodone Screen Urine Methadone Screen Ur Barbiturates Screen U Tricyclic Antidepress Ur Phencyclidine Scrn Ur Amphetamines Screen U Methamphetamines Scrn Ur MDMA Scrn (Ecstasy) U Benzodiazepines Scrn Urine Cocaine Screen U Marijuana (THC) Screen Ethyl Alcohol COVID-19 PCR 06/30/20 17:07 WBC RBC Hgb Hct MCV MCH MCHC RDW Plt Count Neut % (Auto) Lymph % (Auto) [place] % (Auto) Eos % (Auto) Baso % (Auto) Neut # (Auto) Lymph # (Auto) [place] # (Auto) Eos # (Auto) Baso # (Auto) PT INR APTT Sodium Potassium Chloride Carbon Dioxide BUN Creatinine Estimated GFR BUN/Creatinine Ratio Glucose Hemoglobin A1c Calcium Magnesium Total Creatine Kinase CK-MB (CK-2) CK-MB (CK-2) Rel Index Troponin I 0.064 H NT-Pro-B Natriuret Pep Triglycerides Cholesterol LDL Cholesterol, Calc HDL Cholesterol Procalcitonin TSH Free T4 Urine RBC Urine WBC Ur Squamous Epith Cells Urine Bacteria Hyaline Casts Ur Culture Indicated? U Opiates 300ng/mL cut Ur Oxycodone Screen Urine Methadone Screen Ur Barbiturates Screen U Tricyclic Antidepress Ur Phencyclidine Scrn Ur Amphetamines Screen U Methamphetamines Scrn Ur MDMA Scrn (Ecstasy) U Benzodiazepines Scrn Urine Cocaine Screen U Marijuana (THC) Screen Ethyl Alcohol COVID-19 PCR Quality VTE Deep Vein Thrombosis/Pulmonary Embolism Present on Admission: No
--- NOTE | 2020-06-30 20:15 | P.EN_ITS ---
Event Note Event Note: Discussed w/Dr. Dre Lei, [facility]. 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 In that case the occlusion would need to be 60-70% or 240 m(?)/sec if symptomatic. He had not reviewed her image, transfer center is [facility] [place] to figure it out how to get the PAX image linked to [facility] so he can access the images from his home. I requested he get back to me one way or another to either confirm what he said or if there is a different conclusion to what the report said, obviously would call back.
[2020-06-30] MEDS: ATORVASTATIN 20 MG TABLET 40 MG PO (21:34)
[2020-07-01] MEDS: CEFTRIAXONE 1 GM/50 ML FROZ.PIGGY IV (01:55)
[2020-07-01 02:00] VITALS: BP 143/55; PULSE 54; RESP 18; TEMP 36.7; O2SAT 98
[2020-07-01 06:00] VITALS: BP 151/77; PULSE 52; RESP 12; TEMP 36.6; O2SAT 100
[2020-07-01 07:55] VITALS: BP 147/73; PULSE 61; RESP 18; TEMP 36.5; O2SAT 99
[2020-07-01] MEDS: ASPIRIN EC 81 MG TABLET PO (07:58)
[2020-07-01] MEDS: CLOPIDOGREL 75 MG TABLET PO (07:58)
[2020-07-01] MEDS: ENOXAPARIN 40 MG/0.4 ML SYRINGE SUBCUT (07:58)
[2020-07-01] MEDS: lisinopriL 20 MG TABLET 40 MG PO (08:00)
--- NOTE | 2020-07-01 09:46 | DI.ECHO.S_ITS ---
Echocardiogram Report + + :Name: JUAN F BASHIR Study Date: 07/01/2020 Height: 61 in : :Hospital Weight: 116 lb : : Gender: Female BSA: 1.5 m2 : :: 1940 Age: 79 yrs BP: 197/75 mmHg: :Reason For Study: CVA, ELEVATED TROPONIN : :Ordering Physician: HOSPITALIST, : :VINCENT Performed By: Rahel Gardner : :Referring: REDD BURGESS : + + Interpretation Summary The left ventricular cavity is small. The ejection fraction is estimated to be 60-65%. There is mild concentric left ventricular hypertrophy. There is increased echo reflectance of myocardium. Patient has LVH. Blood pressure today 197/75. No low voltage QRS. Hence this could be due to hypertensive heart disease. There is increased echo gain as well. Other differential diagnosis: infiltrative cardiomyopathy. The right ventricle is grossly normal size. Right ventricular systolic function is at the lower limits of normal. There is mild mitral regurgitation. The aortic valve is moderately calcified. There is mild to moderately reduced leaflet mobility. The peak aortic velocity is 2.23 m/sec. The aortic valve mean gradient is 11.2 mmHg. The peak aortic velocity on the previous exam was 2.1 m/sec. The calculated aortic valve area is 1.2 cm2. There is mild to moderate aortic stenosis. There is mild to moderate aortic regurgitation. Compared to the prior echo study, there has been no change in the severity of aortic regurgitation. There is mild to moderate tricuspid regurgitation. Compared to the prior echo exam, there has been an increase in TR severity. The right ventricular systolic pressure is estimated to be at least 43 mmHg based on an estimated right atrial pressure of 3 mm Hg. Compared to the prior echo exam, there has been an increase in the severity of pulmonary hypertension. Mild atherosclerotic plaque(s) in the aortic arch. Procedure: A two-dimensional transthoracic echocardiogram with color flow and Doppler was performed. The study quality was technically adequate. There is no prior echocardiogram noted for this patient. The patient was in atrial fibrillation with heart rates between 55-65 bpm during the exam. Left Ventricle: The left ventricular cavity is small. There is mild concentric left ventricular hypertrophy. There is increased echo reflectance of myocardium. Patient has LVH. Blood pressure today 197/75. No low voltage QRS. Hence this could be due to hypertensive heart disease. There is increased echo gain as well. Other differential diagnosis infiltrative cardiomyopathy. There is no thrombus. The ejection fraction is estimated to be 60-65%. There are no focal wall motion abnormalities. Diastolic function could not be accurately assessed due to atrial fibrillation. Right Ventricle: The right ventricle is grossly normal size. Right ventricular systolic function is at the lower limits of normal. Atria: The left atrium is moderately dilated. Both atria have mildly increased in size since the prior echo exam. The right atrium is mild to moderately dilated. A linear artifact seen in the right atrium. A prominent eustachian valve is noted. There is no Doppler evidence for an interatrial shunt. Mitral Valve: The mitral valve leaflets appear mildly thickened, but open well. There is moderate mitral annular calcification. The mitral valve chordae are thickened and/or calcified. No significant mitral valve stenosis. MV mean P.0 mmHg. There is mild mitral regurgitation. Aortic Valve: The aortic valve is moderately calcified. There is mild to moderately reduced leaflet mobility. There is discrete nodular thickening of the non- coronary cusp. There is mild to moderate aortic stenosis. The peak aortic velocity is 2.23 m/sec. The aortic valve mean gradient is 11.2 mmHg. The peak aortic velocity on the previous exam was 2.1 m/sec. The calculated aortic valve area is 1.2 cm2. There is mild to moderate aortic regurgitation. Compared to the prior echo study, there has been no change in the severity of aortic regurgitation. Tricuspid Valve: The tricuspid valve is normal. The right ventricular systolic pressure is estimated to be at least 43 mmHg based on an estimated right atrial pressure of 3 mm Hg. There is mild to moderate tricuspid regurgitation. Compared to the prior echo exam, there has been an increase in TR severity. Compared to the prior echo exam, there has been an increase in the severity of pulmonary hypertension. Pulmonic Valve: The pulmonic valve is not well visualized. There is no pulmonic valvular regurgitation. Great Vessels: The aortic root is not well visualized. The ascending aorta is normal in size. Mild atherosclerotic plaque(s) in the aortic arch. The IVC is of normal diameter and collapses greater than 50% with a sniff. This suggests a low right atrial pressure of 3 mm Hg. Pericardium/ Pleura There is no pericardial effusion. There is no pleural effusion. MMode/2D Measurements & Calculations LVIDd: 3.4 cm LVOT diam: 1.8 cm LVIDs: 2.2 cm asc Aorta Diam: 3.2 cm FS: 35.3 % Ao Arch Diam (Prox Trans): 2.2 cm EPSS: 0.48 cm IVSd: 1.1 cm LVPWd: 1.3 cm LV glasgow. diameter/BSA (cm/m^2): 2.3 LV sys. diameter/BSA (cm/m^2): 1.5 LA A2 area: 20.9 cm2 RA long axis: 5.4 cm LA A4 area: 17.6 cm2 RA area: 19.8 cm2 LA length (vol): 5.3 cm RA vol: 61.4 ml LA vol: 59.3 ml RA : 41.0 ml/m2 LA vol index: 39.5 ml/m2 IVC diam: 1.8 cm RVD1 (basal): 2.4 cm TAPSE: 1.6 cm Doppler Measurements & Calculations Ao V2 max: 223.0 cm/sec LVOT Max Issa: 106.1 cm/sec Ao V2 mean: 156.9 cm/sec LV V1 max P.5 mmHg Ao max P.9 mmHg LV V1 VTI: 23.3 cm Ao mean P.2 mmHg JEFF(I,D): 1.2 cm2 Ao V2 VTI: 48.7 cm JEFF(V,D): 1.1 cm2 sev ratio: 0.48 JEFF indexed to BSA (cm^2/m^2): 0.77 AI P1/2t: 608.2 msec AI dec slope: 222.2 cm/sec2 MV E max issa: 129.8 cm/sec TR max issa: 315.6 cm/sec MV A max issa: 1.1 cm/sec TR max P.9 mmHg MV E/A: 119.4 PA V2 max: 76.1 cm/sec Med Peak E' Issa: 3.7 cm/sec PA V2 mean: 54.8 cm/sec E/E' med: 35.4 PA mean P.4 mmHg Lat Peak E' Issa: 4.7 cm/sec PA pr(Accel): 48.2 mmHg E/E' lat: 27.9 E/e' average: 31.6 MV dec time: 0.23 sec MVA(VTI): 2.2 cm2 MV V2 mean: 58.1 cm/sec SV(LVOT): 56.2 ml MV mean P.0 mmHg MV V2 VTI: 25.7 cm Reading Physician:[id number] PM
[2020-07-01] MEDS: SODIUM CHLORIDE 0.9% FLUSH 10 ML IV (10:39)
--- NOTE | 2020-07-01 12:01 | OT.IP.EVAL ---
Current Diagnoses Cerebral infarction, unspecified (06/29/20) Past Medical History (Last Reviewed 06/29/20 @ 22:43 by Trent Trivedi DO) Atrial fibrillation (Chronic 2012) AVM (arteriovenous malformation) (Chronic) Cerebral aneurysm (Resolved 1949) Chicken pox (Resolved 1948) Chronic headaches (Chronic) CTS (carpal tunnel syndrome) (Resolved 2004) Depression (Resolved 1984) Fibroids (Resolved 1988) Foot pain (Chronic) Hyperlipidemia (Chronic) Hypertension (Chronic) Lumbar spine pain (Chronic 1976) Measles (Resolved 1947) Migraines (Chronic) Ovarian cyst (Resolved 1956) Painful menstrual periods (Resolved 1951) Stroke (Resolved) Surgical History (Last Reviewed 06/29/20 @ 22:43 by Trent Trivedi DO) Anesthesia (Resolved) History of appendectomy (Resolved ~07/1990) History of bilateral salpingo-oophorectomy (BSO) History of carpal tunnel repair (Resolved 2004) Status post colonoscopy (Resolved 09/05/07) Status post endoscopy (Resolved 05/22/13) Status post epidural steroid injection (Resolved) Status post hysterectomy (Resolved ~07/1990) Occupational Therapy Inpatient Evaluation/Re-Eval M1 PT/OT-IP Prior Functional Status Start: 06/30/20 09:26 Freq: NEEDED Status: Active Protocol: Document 07/01/20 13:10 CGR (Rec: 07/01/20 13:30 CGR [email or web address]) Medical Review Prior Functional Status Medical History Reviewed Yes Communication Pt is an effective verbal communicator. On evaluation, she perseverates on nursing tasks. Her son describes her as extremely intelligent but she uses it as a cover for declining cognition. Mobility and Gait Pt is independent with household mobility but states she often reaches for nascimento and furniture as she is moving about. Pt states she has been walking around her property as well but that she is extremely cautious. Pt reports falling ~once every other month and also endorses multiple near falls. Activities of Daily Living and IADL's Independent with all ADL's. Pt drives, shops, cooks, manages her medications and finances. Pt's son, Hi, states the pt has fallen behind on bills and shows other signs of disorganization which is not typical for her such as misplacing paperwork to establish with new physician. Prior Functional Level (Other details) Pt's son, Hi, checks on her a few times per week. Pt also has a camera prototyping engineer who was hired by Hi and helps out a few times per week. Hi states he attempted to move the pt to his large home at the beginning of COVID lockdown but that she became agitated and threatened to call the police if she could not return home after just a few days. Information obtaied from P.T. note and verified with pt. Social History Household Members none Living Arrangements House Number of Floors (Floors) Two Floors Number of Stairs To Enter/Railing? 8 steps + landing + 6 steps all with narrow bilateral rails to enter at main living level. On the ground level, there is a basement which pt will often access from outside the home. 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 She lives alone in [facility]. M2 OT-IP Current Condition Start: 07/01/20 13:10 Freq: Status: Active Protocol: Document 07/01/20 13:10 CGR (Rec: 07/01/20 13:30 CGR [email or web address]) Occupational Therapy Current Condition Current Condition Evaluation Date 07/01/20 Treatment Diagnosis CVA ~1 month ago, UTI Diagnosis Onset Date 06/29/20 M3 OT- IP Subjective and Pain Start: 07/01/20 13:10 Freq: Status: Active Protocol: Document 07/01/20 13:10 CGR (Rec: 07/01/20 13:30 CGR [email or web address]) OT- Subjective Occupational Therapy Visit Type Type Initial Evaluation Visit Start Time 11:18 Visit Stop Time 12:01 Total Visit Minutes 43 OT Pain Assessment Pain When Pain Assessed During Mobility Pain Present Pain Present Pain Reported Location Sacrum Intensity 6 Scale Used Numeric (0 - 10) Management Techniques Distraction,Modification of Treatment,Re-positioning M4 OT- IP ADL's Start: 07/01/20 13:10 Freq: Status: Active Protocol: Document 07/01/20 13:10 CGR (Rec: 07/01/20 13:30 CGR [email or web address]) OT LVX-Moxs-Uyjphld General Evaluation Self-Feeding Ability Independent Comments OT Self-Feeding Comments soup OT ADL-Grooming General Evaluation Grooming Ability Independent Areas Needing Assistance Face Washing Comments OT Grooming Comments standing at sink OT ADL-Oral Care General Eval Oral Care Ability Independent Comments Oral Care Comments standing at sink OT ADL-Dressing General Eval Lower Body Dressing Ability Independent Areas Needing Assistance Socks Comments OT Dressing Comments seated in chair OT ADL-Toileting General Evaluation Toileting Ability Independent Devices Toileting Assistive Devices Grab Bars Comments OT Toileting Comments seated on toilet for urination . Noted strong smell. OT ADL-Bathing Comments OT Bathing Comments Not performed M5 OT- IP IADL's Start: 07/01/20 13:10 Freq: Status: Active Protocol: Document 07/01/20 13:10 CGR (Rec: 07/01/20 13:30 CGR [email or web address]) OT-Instrumental Activities of Daily Living Deficits IADL Deficits Identified Deficits Home Safety Awareness Awareness of Need for Assistance at Home Decreased Awareness Ability to Problem Solve Emergency Able to Problem Solve Situations Medication Management Medication Management Comments Concerns for pt managing her own medications without some assist. 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 M6 OT- IP Functional Cognition Start: 07/01/20 13:10 Freq: Status: Active Protocol: Document 07/01/20 13:10 CGR (Rec: 07/01/20 13:30 CGR [email or web address]) Cognitive Factors Limiting Selfcare Function Cognitive Ability Level of Alertness Alert Patient Orientation Name,Age,Birthday,Month,Date, Year,Place,Situation Attention Span Ability Capable of Focused Attention, Capable of Sustained Attention Ability to Follow Commands Able to Follow Multi-Step Commands,Able to Follow One Step Commands with Repetition Memory Description Short Term Impaired Safety Awareness Underestimates Need for Assistance Cognitive Tests MOCA Pt performed the MOCA 7.3 (as 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 Pt scored a 23/30. Pt missed all of the delayed recall of words, was unable to perform the sequencing of number to letter and missed the day of the week. Cognitive Comments Cognitive Assessment Comments Pt performed well given her age and new onset of CVA but noted that her short term memory is poor and is impacting her abilities for home safety. OT- Vision and Hearing OT- Hearing Assessment OT- Hearing Assessment WFL OT- Vision Assessment Visual Acuity Glasses All The Time Visual Attentiveness WFL Occular Pursuits Impaired Horizontal Visual Convergence WFL Visual Spacial Neglect Left Vision Assessment Comments Noted nastagmus with horizontal eye movement and worse to the L eye than that right. Pt was able to accurately perform peripheral visual screening to the right but was unable to correctly state the number of fingers in her L peripheral field with additional chances but pt states that she is able to see this writers hand. M7 OT- IP Mobility and Balance Start: 07/01/20 13:10 Freq: Status: Active Protocol: Document 07/01/20 13:10 CGR (Rec: 07/01/20 13:30 CGR [email or web address]) OT- Bed Mobility Assessment Supine to Sit Supine to Sit Assist Independent Scooting Scooting to Edge of Bed Independent OT-Transfer Assessment Sit to and From Stand Sit to and from Stand Standby Assistance Transfers Transfer Ability Standby Assistance Technique Transfer Destination Bed,Chair,Toilet Transfer Technique Stand Step Pivot Devices Transfer Assistive Devices Gait Belt OT- Gait Assessment Gait Gait Assistance Required: Standby Assistance Assistive Devices Assistive Device Gait Belt OT- Balance Assessment Sitting Balance and Reactions Static Sitting Balance Ability Good Dynamic Sitting Balance Ability Good M8 OT- IP Objective Assessments Start: 07/01/20 13:10 Freq: Status: Active Protocol: Document 07/01/20 13:10 CGR (Rec: 07/01/20 13:30 CGR [email or web address]) OT Gross Range of Motion Upper Extremity Range of Motion Assessment Within Functional Limits OT Strength Upper Extremity Strength Assessment Within Functional Limits Hand Customer Accounts Advisor Strength Hand Dominance Right Comments Strength Comments noted slightly less strength to the LUE RUE: 4+/5 LUE: 4/5 OT- Coordination Assessment Upper Extremity Finger to Nose Test Within Functional Limits Finger Tapping Test Within Functional Limits OT-Muscle Tone Assessment Muscle Tone WNL Yes OT Sensation Assessment Edema Edema Absent M9 OT- IP Assessment and Plan Start: 07/01/20 13:10 Freq: Status: Active Protocol: Document 07/01/20 13:10 CGR (Rec: 07/01/20 13:30 CGR [email or web address]) OT Summary Assessment and Plan Potential Rehabilitation Potential Good Analytic Complexity at Evaluation Low Summary OT Impairments Pain,Strength,Balance, Functional Cognition, Functional Mobility,Toileting, Bathing,Toilet Transfers, Shower Transfers,Activity Tolerance Progress Towards Goals Progressing Toward Goals Assessment Summary Pt presents as a low complexity evaluation found to hav UTI and CVA estimated ~1 month ago with visual hallucination and L sided weakness. Pt's strength appears to have returned to normal but of note, pt appears to have some personality changes (per sons reports noted in chart) and cognitive abilities noted per MOCA. Pt also demonstrates some deficits to her L peripheral vision. Pt will benefit from continue OT services. Pt is unlikely to agree to SNF but would be safest with 24/ supervision. Goals Dressing Goal Independent Toileting Goal Independent Bathing Goal Independent Toilet Transfer Goal Independent Shower Transfer Goal Independent Days to Meet Goals 5 Frequency of Treatment Frequency Of Treatment Once a Day Treatment Plan OT Treatment Plan ADL Training,Functional Cognition Training,Functional Mobility,Patient/Family Education,Discharge Planning Other Treatment Recommendations and Next shower Treatment Focus Discharge Recommendations OT Discharge Recommendations Home with 24/7 Assist Other Discharge Recommendations Recommend d/c with 24/7 supervision at this time. Home Equipment Needs tub transfer bench Transportation Needs at Discharge Private Vehicle
--- NOTE | 2020-07-01 13:36 | PT.IPTN ---
Current Diagnoses Cerebral infarction, unspecified (06/29/20) Physical Therapy Treatment Note M2 PT-IP Current Condition Start: 06/30/20 09:26 Freq: NEEDED Status: Active Protocol: Document 06/30/20 11:40 AW (Rec: 06/30/20 13:43 AW [id number]) Physical Therapy Current Condition Current Condition Evaluation Date 06/30/20 Treatment Diagnosis UTI, hallucinations, balance disturbance, difficulty in walking Onset Date 06/29/20 Precautions Other Precautions high falls risk M3 PT-IP Subjective Start: 06/30/20 09:26 Freq: NEEDED Status: Active Protocol: Document 07/01/20 12:47 LJ (Rec: 07/01/20 13:36 LJ [id number]) Subjective Physical Therapy Visit Type Type Treatment Note Visit Start Time 12:47 Visit Stop Time 01:03 Total Visit Minutes 16 Notes Pt in room with son. Willing to ambulate in hallway prior to departure Physical Therapy Visit Comments Patient Goals Pt hopes to return home at discharge. M4 PT-IP Mobility and Gait Start: 06/30/20 09:26 Freq: NEEDED Status: Active Protocol: Document 07/01/20 12:47 LJ (Rec: 07/01/20 13:36 LJ [id number]) PT-Transfer Assessment Sit to and From Stand Sit to and from Stand Standby Assistance Equipment Transfer Assistive Device Gait Belt Transfers Transfer Destination Chair Transfer Ability Level of Assist Standby Assistance Comments Mobility Comments Pt sitting in chair talking to son about DC. Pt took 2 attempts to stand from chair. Cues to scoot forward allowed her to stand the second attempt. After ambulating in hallway pt returned to room and sat into chair in a controlled manner without assist. She got up again to retrieve some papers and was able to stand on the first attempt. Pt left in room standing kimberly the bed with CUSTOM BOOKBINDER. Gait Assessment Gait Gait Assistance Required: Standby Assistance,Contact Guard Assist Distance (Feet) 250 Gait Deviations General Gait Pattern Decreased Stride Length, Decreased Feet Clearance, Flexed Trunk,Lateral Trunk Lean Factors Limiting Gait Function Factors Limiting Gait Function Decreased Activity Tolerance, Decreased Strength,Poor Balance,Poor Safety Awareness Comments Gait Comments Pt ambulated to stairs from room then did a lap around the [employer] station. She did not experience any LOB but did not appear very steady. She needed cues to slow down and look forward in the direction in which she was walking. No difficulty with obstacle navigation Stair Climbing Assessment Evaluation Level of Assist On Stairs Standby Assistance Devices Stair Climbing Assistive Devices Left Railing,Right Railing Technique/Endurance Stair Climbing Direction Ascend and Descend Stair Climbing Technique Step to Step Number of Steps Climbed 3 Stair Climbing Set # Repetitions (reps) 2 Comments Stair Climbing Comments cueing to lower herself down one step at a time in a step- to pattern. Also to use strongest leg to ascend and descend the steps M5 PT-IP Objective Assessments Start: 06/30/20 09:26 Freq: NEEDED Status: Active Protocol: Document 06/30/20 11:40 AW (Rec: 06/30/20 13:43 AW [id number]) Orientation Orientation/Cognition Level of Alertness Confusional State Orientation Name,Day of Week,Place, Situation Language Function Ability No Deficits Noted Safety Awareness Decreased Safety Awareness Memory Description Short Term Impaired,Assembler Latches And Springs Impaired Comments Pt is oriented but appears confused. During eval, pt presents with perseverating on items in the room and nursing tasks. She underreports falls according to her son and seems to have poor insight into her condition. Gross Range of Motion Upper Extremity ROM Assessment Within Functional Limits Lower Extremity ROM Assessment Within Functional Limits Strength Upper Extremity Strength Assessment Within Functional Limits Lower Extremity Strength Assessment Within Functional Limits Comments Strength Comments BLE grossly 4+/5 Coordination Assessment Gross Coordination Gross Coordination WNL Assessment Finger to Nose Test Normal Performance Sensation Assessment Sensation Gross Sensation WNL Muscle Tone Muscle Tone WNL Yes Other Assessments Other Other Assessments 3+ pitting edema distal LLE. M6 PT-IP Treatment Start: 06/30/20 09:26 Freq: NEEDED Status: Active Protocol: Document 07/01/20 12:47 LJ (Rec: 07/01/20 13:36 LJ [id number]) Physical Therapy Treatment Education Education Provided Safety Other Treatments Other Treatment Performed demonstration of how using the stronger leg to lower herself down a step is safer M7 PT-IP Assessment and Plan Start: 06/30/20 09:26 Freq: NEEDED Status: Active Protocol: Document 07/01/20 12:47 LJ (Rec: 07/01/20 13:36 LJ [id number]) PT Summary Assessment and Plan Potential Rehabilitation Potential Good Status of Condition at Evaluation Stable Summary Impairments Strength,Balance,Cognition, Transfers,Gait Assessment Summary Pt ambulated in hallway with CGA to mostly SBA after demonstrating no LOB or problems with obstacle navigation. She needed cueing to slow down while walking and to use a step-to pattern to go down the stairs. Her balance appeared somewhat improved during ambulation with no LOB or significant lateral lean. Discussed trying to set up the home so that she does not have to use stairs several times during the day as she has many stairs in her home. Her son stated that he was building an elevator like lift for her. Goals Transfer Goal Independent Gait Goal Independent Gait Distance 200 Other Goals - up/down 14 steps with B rails SBA Days to Meet Goals 5 Frequency of Treatment Frequency Of Treatment Once a Day Treatment Plan Physical Therapy Treatment Plan Bed Mobility Training,Transfer Training,Gait Training, Therapeutic Exercise,Balance Retraining,Discharge Planning, Neuromuscular Re-ed, Coordination Retraining Other Recommendations and Next Treatment gait training; balance Focus interventions Recommendations To Nursing Amount of Assist Needed Standby Assistance Discharge Recommendations PT Discharge Recommendations Home with Assistance,Home Health Other Discharge Recommendations Home with increased support and HH PT Transportation Needs at Discharge Private Vehicle
[2020-07-01 14:00] VITALS: BP 143/62; PULSE 72; RESP 18; TEMP 36.7; O2SAT 99
--- NOTE | 2020-07-01 14:07 | CM.DANOTE ---
DCP/Assessment: Reviewed chart. Patient is a 79yr old female admitted [facility] with [facility]. PCP is Jasmin De Los Santos. Primary payor is 1)Medicare 2)[employer]. Met with patient explained CM/SW role. Patient alert and oriented at time of visit. Patient reports that she has been hallucinating off/on lately. A few weeks ago she could of swore she saw her spouse. Pt's son Praveen in the room and confirms. Praveen interested in getting resources for in home caregivers if patient worsens. 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 Patient provided with agency choices and [facility] chosen. Patient seen by therapy and they recommend home with HH. Order obtained and F2F completed. Placed call to Mark at [facility] and referral accepted. Information faxed. No d/c summary available at this time. 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 Patient frustrated because she has been told she cannot drive until seen by PCP. Provider reports patient has had previous stroke and might be having some long-term residual affects. P: Home today. Son will provide transport. HH set up through [facility]. KIRAN Godwin Discharge Planning/Care Management Advanced directive, confirm from FAMILY Start: 06/30/20 02:31 Freq: Q24H Status: Active Protocol: Document 06/30/20 02:31 RM (Rec: 06/30/20 02:32 RM [id number]) Advance Directive, confirm on record Time 02:32 Person contacted n Copy received No CM Discharge Assessment Start: 07/01/20 13:44 Freq: Status: Active Protocol: Document 07/01/20 13:44 KJS (Rec: 07/01/20 14:07 KJS [id number]) Discharge Planning Assessment Assigned Aba Therapist KIRAN Godwin Contact Information Praveen Dunbar (son) Advance Directives? Yes History Provided By Patient,Family Member,Medical Record Prior Living Arrangements House Household Members none Type of transporation used prior to Drives own vehicle admit Comment Patient instructed not to drive until seen by PCP. Independent with ADL's Yes Is patient alert and oriented? Yes Needs Assistance With Home Chores / Shopping Caregiver for Another No Comment Patient reports that she uses the nascimento of her residence to get around. Patient/Family Preference Home with Home Health Barriers to Discharge No Discharge Plan Home Transportation Arrangement Family to provide transportation home. Referrals Initiated Home Health Whiteboard Updated in Patient Room with Yes name and ext. # of Aba Therapist Review Status In Process Next Review Type Continued Stay Review ED Psychiatric Symptoms Assessment Start: 06/29/20 21:34 Freq: Status: Complete Protocol: Document 06/29/20 21:53 LE (Rec: 06/29/20 21:55 LE [id number]) Psychiatric Symptoms Assessment Onset 06/15/2020 Duration Intermittent History Of Same No Context Not Taking Psychiatric Medications,Unknown Improves With Nothing Associated Psychiatric Symptoms Auditory Hallucinations,Visual Hallucinations Associated Symptoms Denies Other Symptoms Level of Consciousness Alert,Appropriate,Awake Patient Orientation Name,Age,Birthday,Month,Year, Place,Situation Ability to Follow Directions Good Patient Cognition Impaired No Affect Description Calm Patient Appearance Well Groomed Hallucination Type Auditory,Visual Suicidal Ideation None Suicide Plan No Plan Homicidal Ideation None Nausea/Vomiting None
--- NOTE | 2020-07-01 14:45 | P.DS_ITS ---
History of Present Illness History of Present Illness Date Patient Seen: 06/30/20 Chief complaint: hallucinations Narrative: Written by Brittany LEBLANC: Teresa Monet is a pleasant and talkative 79 year old female with a history of essential hypertension and atrial fibrillation not currently anticoagulated, and CHF who presented today with complaints of having visual hallucinations of her . It is difficult to appreciate her history due to her being very tangential in her conversations. She states she has a 1-2 week history of what she referred to his confusion and visual hallucinations her . She currently lives with her son and under 1 of the circumstances she stated that he was wearing her late 's jacket. She states that she has these visions of her late and then gets confused afterwards. She was brought in by her son because she was actively hallucinating and was also complaining of numbness and tingling in her left arm and leg. In the emergency department they did note that she her left extremities were drifting but not entirely falling. At that time and during my discussions with her she was appropriate. She denies difficulty with her vision, difficulty swallowing, headaches, chest pain, shortness of breath, nausea or vomiting, dysuria, or constipation. 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 She has had chronic diarrhea for which she takes medications for which she did not recall the name of and denied it was an Imodium. Head CT done in the emergency department reported age-appropriate brain parenchymal volume loss and chronic small vessel ischemic changes. She was found to have a urinary tract infection. She does deny that she is currently having a stroke because she states that it would of been sudden onset. 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 Patient was afebrile on presentation, blood pressure 156/71, heart rate of 55, respiratory rate 16, oxygen saturation of 92% on room air (to be put on one liter), she weighs 52.8 kg with a BMI of 21.9. CBC is largely within normal limits, BMP also within normal limits, she does have an elevated troponin of 0.064 which will be trended, brain atretic peptide is 5850, she has bacteria in her urine enough that it meets criteria for culture, she had a mildly elevated alcohol level of 21 and is COVID-19 negative Discharge Providers Provider Date of admission: 06/29/20 23:40 Discharge Date: 07/01/20 Primary care physician: BENJI Sanz Consults: 06/30/20 02:27 Consult to Discharge Planning Routine Comment: Consult to Occupational Therapy Evaluate & Treat Comment: Physician Instructions: Evaluate and treat Consult to Physical Therapy Evaluate & Treat Comment: Physician Instructions: Evaluate and Treat Consult to Speech Therapy Evaluate & Treat Comment: Physician Instructions: Evaluate and treat 06/30/20 08:15 Consult to RESEARCH GROUP DIRECTOR - [employer] Boss Routine Comment: RESEARCH GROUP DIRECTOR Consult: Substance Abuse Assess 07/01/20 12:54 Consult to Home Health Routine Comment: DX: TIA Reason For Exam: HH for PT/OT/RN and RESEARCH GROUP DIRECTOR Discharge provider: Richelle Mcclendon DO Summary Hospital Course Discharge Diagnosis: 1. Possible TIA versus remote right posterior CVA, present on admission. Active. 2. Right internal carotid artery stenosis, chronic, present on admission. Stable. 3. Elevated troponin of unclear significance, present on admission. Resolved. 4. Asymptomatic bacturia, present on admission. Stable. 5. HFpEF, chronic, present on admission. Stable. 6. Hypertension, chronic, present on admission. Stable. 7. Hyperlipidemia, chronic, present on admission. Active. 8. Chronic atrial fibrillation, present on admission. Stable. Hospital Course: Teresa Monet is an 79-year-old female with a past medical history of former smoker, hypertension, hyperlipidemia, chronic atrial fibrillation not on anticoagulation due to history of spontaneous subdural hemorrhages who presented to the ED with her son due to at least 2 weeks of visual hallucinations, mild confusion and balance issues. 1. Possible TIA and remote right posterior CVA, present on admission. Active. -Patient presented with history of confusion, visual hallucinations and balance issues for the past 2-4 weeks. -NIH score 4. Continued frequent neurological checks. -CT brain without contrast did not demonstrate any acute intracranial abnorma lities. Remote appearing right posterior cerebral infarction and age-appropriate brain parenchymal volume loss and chronic small vessel -MR stroke protocol demonstrated complete remote posterior right cerebral CVA and complete occlusion of right ICA with patent left ICA as below. -EKG demonstrated normal atrial fibrillation without acute ischemic changes. Continued to monitor on telemetry. -Echocardiogram did not demonstrate embolic source or intra-atrial shunt. -Continued home aspirin 81 mg daily, clopidogrel 75 mg daily for at least 3 weeks (could consider longer due to right MCA decreased flow), and atorvastatin 40 mg daily at bedtime for stroke prophylaxis. Patient declined anticoagulation due to history of subdural brain bleeds. -Risk stratified with hemoglobin A1C indicative of prediabetes at 5.7% of and lipid panel which demonstrated poor lipid control with: Total cholesterol 211, Triglycerides 74, LDL 122 (goal < 70) and HDL 74. -Continued physical therapy, occupational therapy, and speech therapy evaluation and treatment. Patient discharged home with home health for PT, OT and nursing. 2. Right internal carotid artery stenosis, chronic, present on admission. Stable. -MR stroke protocol demonstrated: No acute or subacute infarctions. Remote right posterior cerebral infarction seen, with volume loss and encephalomalacia. No masses or abnormal enhancement can be seen. Note is made of age-appropriate brain parenchymal volume loss and chronic small vessel ischemic changes. No flow is seen within the right internal carotid artery. The left anterior cerebral artery and middle cerebral artery are supplied from the left side, across the anterior communicating artery. There is slightly decreased flow seen within the right middle cerebral artery compared to the left middle cerebral artery. There is occlusion of the right internal carotid artery seen at its origin.Approximately 30% narrowing can be seen involving the proximal left internal carotid artery. -Consulted vascular surgery over the phone and recommended close outpatient monitoring and possible carotid endarterectomy of right ICA if left becomes 70% or more stenosed. 3. Elevated troponin of unclear significance, present on admission. Resolved. -Possibly due to demand ischemia in the setting of chronic atrial fibrillation and possible TIA and remote CVA. -Patient denies CP or ACSA symptoms. -EKG demonstrated atrial fibrillation with an old possible septal infarct and no acute ischemic changes. -Initial troponin 0.064. Troponin peaked at 0.070n and trended back down. No need to further trend. 4. Asymptomatic bacturia, present on admission. Stable. -Patient denies symptoms and hallucinations likely due to CVA as above. -Urinalysis with bacturia but urine culture with no growth. -Discontinued ceftriaxone 1 g IV daily as urine culture had no growth. 5. HFpEF, chronic, present on admission. Stable. -[facility] had acute exacerbation of CHF. -ProBnp of of 5850 -Echocardiogram demonstrated LV cavity is small with EF 60-65%, mild concentric left ventricular hypertrophy, increased echo reflectance of myocardium, LVH and increased echo gain with differential diagnosis: infiltrative cardiomyopathy, RV is grossly normal size and systolic function is at the lower limits of normal, mild mitral regurgitation, aortic valve is moderately calcified, mild to moderately reduced leaflet mobility, peak aortic velocity is 2.23 m/sec, aortic valve mean gradient is 11.2 mmHg, calculated aortic valve area is 1.2 cm2, mild to moderate aortic stenosis, mild to moderate aortic regurgitation, mild to moderate tricuspid regurgitation with an increase in TR severity compared to previous echo, RVSP is estimated to be at least 43 mmHg based on an estimated right atrial pressure of 3 mm Hg, mild atherosclerotic plaque(s) in the aortic arch. -Received diuresis with furosemide 20 mg IV x 1 due to concern for volume overload with IVF given in ED. -Continued to monitor strict I&O's and daily weights. 6. Hypertension, chronic, present on admission. Stable. -Allowed for permissive hypertension x 24 hours to promote cerebral perfusion. -Continued home lisinopril increased from 20 mg to 40 mg daily. 7. Hyperlipidemia, chronic, present on admission. Active. -Fasting lipid panel demonstrated poor lipid control as above. -Started and continued aspirin 81 mg daily and atorvastatin 40 mg daily at bedtime. 8. Chronic atrial fibrillation, present on admission. Stable. -EKG demonstrated normal atrial fibrillation without acute ischemic changes. Continued to monitor on telemetry. -Echocardiogram did not demonstrate embolic source. -Patient declined anticoagulation due to history of subdural brain bleeds and continued aspirin and plavix as above. Patient is not on rate control medication. Exam Vital Signs (past 8 hours): - 07/01/20 07:55 07/01/20 14:00 Temperature 97.7 F 98.1 F Pulse Rate 61 72 Respiratory Rate 18 18 Blood Pressure 147/73 H 143/62 H Pulse Oximetry 99 99 Oxygen Delivery Method Room Air Oxygen Flow Rate 0 Narrative Exam Narrative: General: Elderly female lying in bed and in no acute distress, well-developed, well-nourished, tangential thinking, speaks intellectually to mask confusion otherwise appropriately interactive. HEENT: Normocephalic, atraumatic. External ears without defect. Pupils equal, round, and reactive to light. Anicteric sclerae, moist conjunctivae, and no lid lag. Oropharynx free of erythema and cobble stoning with moist mucosa. Neck: Supple with full range of motion. No jugular venous distension. No lymphadenopathy or thyromegaly. Cardiovascular: Irregularly irregular with soft grade 2/6 holosytolic murmur at LSB. No rubs or gallops appreciated Pulmonary: Clear to auscultation bilaterally without crackles, wheezes, or rhonchi. Normal respiratory effort with no use of accessory muscles. Abdomen: Soft, bowel sounds present, nontender, nondistended. No hepatosplenomegaly or masses appreciated. Extremities: No clubbing, cyanosis, or edema. Skin: Normal temperature, turgor, and texture; no rash, ulcers, or subcutaneous nodules appreciated. Neurological: Cranial nerves grossly intact. Subtle left sided upper extremity weakness +4/5 otherwise normal MS in all other extremities. Psychiatric: Slightly irritable mood and affect. Tangential thinking. Speaks intellectually to mask mild confusion. Mild cognitve impairment with short term memory recall deficit. Alert and oriented to person and place. Objective Labs Result Diagrams: 06/30/20 05:30 06/30/20 05:30 Labs: Laboratory Results - last 24 hr 06/30/20 17:07 Troponin I 0.064 H Discharge Plan Discharge Plan Patient Disposition: Home Health Service Discharge comment: You are being discharged home with home health for physical therapy, occupation therapy, nursing needs and RESEARCH GROUP DIRECTOR. You have had an old right posterior cerebral stroke likely in the past 4 weeks or beyond which has likely been causing your hallucinations, confusion, personality changes, and subtle left-sided weakness and tingling. You have been prescribed aspirin 81 mg daily, clopidogrel 75 mg daily for 3 weeks and atorvastatin 40 mg daily at bedtime to help prevent future strokes. Due to your atrial fibrillation your high risk of strokes from blood clots and would normally recommend blood thinner, however, due to your history of subdural brain bleeds you are higher risk of bleeding and blood thinners have not been prescribed. You have a completely occluded right internal carotid artery, however, your left internal carotid artery is patent (30% narrow) and unless this becomes severely narrowed more than 70% no surgery is warranted. Recommend no driving indefinitely Please follow-up with your primary care provider, Jasmin De Los Santos, regarding your hospitalization and monitoring of your carotid arteries. Discharge orders & Medications Prescriptions: New clopidogrel 75 mg Tablet 75 mg PO DAILY Qty: 21 RF: 0 aspirin 81 mg Tablet,Delayed Release (Dr/Ec) 81 mg PO DAILY Qty: 30 RF: 0 atorvastatin 40 mg tablet 40 mg PO BEDTIME Qty: 30 RF: 0 lisinopril 40 mg tablet 40 mg PO DAILY Qty: 30 RF: 0 Continued acetaminophen 325 mg capsule 325 mg PO QID PRN (Reason: pain) Qty: 90 RF: 0 fluoxetine 10 MG capsule 10 mg PO DAILY RF: 0 vitamin E 400 unit Capsule 400 unit PO DAILY RF: 0 Centrum Silver 400-250 mcg Tablet,Chewable 1 tab PO DAILY RF: 0 CoQ-10 1 cap PO DAILY RF: 0 ascorbic acid (vitamin C) tablet 1 tab PO DAILY RF: 0 echinacea 1 tab PO DAILY RF: 0 Lactobacillus acidophilus [Acidophilus] Capsule 1 cap PO PRN PRN (Reason: Diarrhea) RF: 0 zinc 1 tab PO DAILY RF: 0 Discontinued naproxen 375 mg Tablet 375 mg PO BID PRN (Reason: pain) RF: 0 No Action levetiracetam [Keppra] 500 mg tablet 500 mg PO BID Qty: 60 RF: 0 Follow up/Referrals: Jasmin De Los Santos ARNP [Primary Care Provider] - 1 Week Diet/Activity/Treatments Diet: Low-sodium, Low-cholesterol and Low-protein/Renal Activity: Activity as tolerated with physical and occupational therapy. Recommend use a walker at all times. Visit Report/Discharge Packet Instructions: The Mediterranean Diet and Good Health, Atherosclerosis, DI for Stroke-Ischemic, Carotid Artery Stenosis, DI for Coronary Artery Disease, Atorvastatin, Clopidogrel, Lisinopril, Mediterranean Diet May Reduce the Risk of Stroke in People with High Risk o Visit Report Forms: Patient Portal/API, Stroke Signs & Symptoms Discharge Data Primary Care Provider: Jasmin De Los Santos Discharges patient from system. Discharge Date/Time: 07/01/20 15:35 Quality VTE Deep Vein Thrombosis/Pulmonary Embolism Present on Admission: No
--- NOTE | 2020-07-01 15:34 | PC.NURSE ---
Went over dc instructions and medications with patient and patients son, questions answered. Patient aware new RX were sent electronically to her pharmacy. Patient taken via wc to vehicle driven by son. Patient had all belongings.
== END 2020-07-01 15:35 | disposition home health service (06) | DRG 65 ==
LOC: ED 23:33 → AC 23:40
PROVIDERS: Internal Medicine; Admitting Provider Nurse Practitioner Family; Emergency Provider Emergency Medicine; PCP Nurse Practitioner; Referring Provider Emergency Medicine; Visit Provider Nurse Practitioner Family
DX: I63.9 Cerebral infarction, unspecified (principal); N39.0 Urinary tract infection, site not specified; G45.9 Transient cerebral ischemic attack, unspecified; I48.20 Chronic atrial fibrillation, unspecified; I50.32 Chronic diastolic (congestive) heart failure; I11.0 Hypertensive heart disease with heart failure; G83.24 Monoplegia of upper limb affecting left nondominant side; R44.1 Visual hallucinations; R79.89 Other specified abnormal findings of blood chemistry; E78.5 Hyperlipidemia, unspecified
CPT/HCPCS: 36415; 70450; 70548; 70553; 80048; 80061; 80305; 80320; 81003; 81015; 82550; 82553; 82962; 83036; 83735; 83880; 84145; 84439; 84443; 84484; 85025; 85610; 85730; 87086; 87635; 92610; 93005; 93306; 96360; 96361; 97116; 97129; 97162; 97165; 97535; 99285; J1650; J1940

== ENCOUNTER 2020-07-02 16:44 | Emergency (ER) | payer MEDICARE, OTHER, SELFPAY ==
[2020-07-02] VITALS (11 sets, daily range): BP systolic 158–202; BP diastolic 67–119; PULSE 60–74; RESP 18–25; TEMP 36.8; O2SAT 94–98; BMI 24.5
--- NOTE | 2020-07-02 17:06 | ED_ITS ---
HPI - Neuro Symptoms/Deficit <Janet Parada MD - Last Filed: 07/03/20 20:19> General Chief Complaint: Neuro Symptoms/Deficit Stated Complaint: stroke type symptoms, not completing sentences Time Seen by Provider: 07/02/20 17:06 Source: patient Mode of arrival: Ambulatory Limitations: no limitations History of Present Illness HPI Narrative: 79-year-old woman with a history of atrial fibrillation, anticoagulation and was admitted for a stroke on June 29 with discharge on the (yesterday). She is brought in by her son today with reports of increasing confusion since time of discharge and 2 episodes of syncope 1 hour prior to arrival. Each episode of syncope is described as simply talking and then ?out? with leaning to 1 side, no seizure-like activity no loss of bowel or bladder function and no respiratory concerns. After the 1st episode (which lasted approximately 10 seconds) she needed a couple minutes to reorient but was otherwise doing well. After the 2nd episode (also lasting approximately 10 seconds) her son noted that it took a number of minutes to completely reorient her. Since discharge she states she has been taking all discharge medications, she complains of no fevers, cough, chills, abdominal pain, seizure-like activity, urinary tract infection symptoms. She remains slightly confused and was somewhat upset that she was not meeting Dr. Jasmin De Los Santos in the emergency department today as she was instructed to follow-up with Dr. De Los Santos in the near future. On Anticoagulants: Yes (asa plavix) Related Data Home Medications Medication Instructions Recorded Confirmed Centrum Silver 1 tab PO DAILY 01/16/19 06/30/20 CoQ-10 1 cap PO DAILY 01/16/19 06/30/20 Lactobacillus acidophilus 1 cap PO PRN PRN 01/16/19 06/30/20 [Acidophilus] alprazolam 0.25 mg PO BID PRN 01/16/19 06/30/20 ascorbic acid (vitamin C) 1 tab PO DAILY 01/16/19 06/30/20 echinacea 1 tab PO DAILY 01/16/19 06/30/20 fluoxetine 10 mg PO DAILY 01/16/19 06/30/20 vitamin E 400 unit PO DAILY 01/16/19 06/30/20 zinc 1 tab PO DAILY 01/16/19 06/30/20 Previous Rx's Medication Instructions Recorded acetaminophen 325 mg capsule 325 mg PO QID PRN #90 cap 04/25/18 aspirin 81 mg PO DAILY #30 tab 07/01/20 atorvastatin 40 mg PO BEDTIME #30 tab 07/01/20 clopidogrel 75 mg PO DAILY #21 tab 07/01/20 lisinopril 40 mg PO DAILY #30 tab 07/01/20 levetiracetam [Keppra] 500 mg PO BID #60 tab 07/02/20 Allergies Allergy/AdvReac Type Severity Reaction Status Date / Time latex Allergy Severe BREAKOUT Verified 07/02/20 16:56 prochlorperazine Allergy Severe TARDIVE Verified 07/02/20 16:56 DYSKINESIA Review of Systems <Janet Parada MD - Last Filed: 07/03/20 20:19> Review of Systems Narrative: She notes that she absolutely has not been herself are thinking as crisp Lauren as she usually does for at least the last 4-5 days. Pertinent positive and negative findings as per HPI Remainder of review of systems is otherwise unremarkable for Constitutional: Fevers, chills, weakness ENT: No sore throat, neck pain, ear pain CV: Chest pain, palpitations, dyspnea on exertion Respiratory: Cough, wheeze, dyspnea GI: Nausea, vomiting, diarrhea, change in bowel habits, black or bloody stools : Dysuria, hematuria, flank pain MS: Muscle weakness, numbness, joint swelling or warmth Skin: Rashes, nonhealing lesions Patient History <Janet Parada MD - Last Filed: 07/03/20 20:19> Medical History Atrial fibrillation (Chronic 2012) AVM (arteriovenous malformation) (Chronic) Cerebral aneurysm (Resolved 1949) Chicken pox (Resolved 1948) Chronic headaches (Chronic) CTS (carpal tunnel syndrome) (Resolved 2004) Depression (Resolved 1984) Fibroids (Resolved 1988) Foot pain (Chronic) Hyperlipidemia (Chronic) Hypertension (Chronic) Lumbar spine pain (Chronic 1976) Measles (Resolved 1947) Migraines (Chronic) Ovarian cyst (Resolved 1956) Painful menstrual periods (Resolved 1951) Stroke (Resolved) Surgical History Anesthesia (Resolved) History of appendectomy (Resolved ~07/1990) History of bilateral salpingo-oophorectomy (BSO) History of carpal tunnel repair (Resolved 2004) Status post colonoscopy (Resolved 09/05/07) Status post endoscopy (Resolved 05/22/13) Status post epidural steroid injection (Resolved) Status post hysterectomy (Resolved ~07/1990) Family History Brother Coronary artery disease Myocardial infarction Father Kidney disease Glomerulonephritis Grandfather Heart disease Cerebrovascular accident (CVA), unspecified mechanism Grandmother Essential hypertension Mental health problem Vascular disease Mother Multiple myeloma Grandmother Gastric hemorrhage Essential hypertension High cholesterol Brother No problems noted. Grandfather Myocardial infarction Social History marital status: household members: none Smoking Status: Former smoker alcohol intake: current Smoking Status: Former smoker alcohol intake frequency: 0-2 drinks per day Substance Use Type: does not use Exam <Janet Parada MD - Last Filed: 07/03/20 20:19> Narrative Exam Narrative: General: Healthy appearing, in no acute distress. HEENT: Moist mucous membranes, normal sclera with reactive pupils, Neck: No JVD, supple Respiratory: Lungs are clear to auscultation, no wheezing no rales no rhonchi. Full and symmetrical air movement Cardiac: Regular rate and rhythm no murmurs no bruits Abdomen: Soft nontender good bowel tones, no flank pain Skin: Warm and dry, no rashes Neurologic: Grossly neurologically intact with no obvious asymmetries or abnormalities, somewhat irritable Extremities: No trauma, well perfused Psych: Cooperative, mildly confused as to specific details but able to carry on a complete conversation with normal speech fluency Initial Vital Signs Initial Vital Signs: Vital Signs Temperature 98.2 F 07/02/20 16:48 Pulse Rate 74 07/02/20 16:48 Respiratory Rate 20 07/02/20 16:48 Blood Pressure 202/95 H 07/02/20 16:48 Pulse Oximetry 96 07/02/20 16:48 <Trent Trivedi DO - Last Filed: 07/03/20 00:33> Initial Vital Signs Initial Vital Signs: Vital Signs Temperature 98.2 F 07/02/20 16:48 Pulse Rate 74 07/02/20 16:48 Respiratory Rate 20 07/02/20 16:48 Blood Pressure 202/95 H 07/02/20 16:48 Pulse Oximetry 96 07/02/20 16:48 Scores <Janet Parada MD - Last Filed: 07/03/20 20:19> ABCD2 Citation: Lancet. 2006Nov 20;369(0158):380-79. Validation and refinement of scores to predict very early stroke risk after transient ischaemic attack. Faith SC1, Carol Ann PM, Nicanor MN, Tiburcio MF, Noman JS, Storm AL, Jayce S. Course <Janet Parada MD - Last Filed: 07/03/20 20:19> Orders Ordered: Discontinued Medications Levetiracetam 1,000 mg/ Sodium (Chloride) 110 mls @ 440 mls/hr IV NOW ONE Stop: 07/02/20 19:44 Last Infusion: 07/02/20 20:23 Dose: 0 mls/hr Documented by: JUAN JOSÉ Admin: 07/02/20 20:03 Dose: 440 mls/hr Documented by: ERNST Vital Signs Vital signs: Vital Signs - 8 hr 07/02/20 16:48 07/02/20 17:36 07/02/20 17:56 Temperature 98.2 F Pulse Rate 74 69 70 Respiratory Rate 20 24 Blood Pressure 202/95 H 181/119 H Pulse Oximetry 96 97 07/02/20 18:00 07/02/20 18:30 07/02/20 18:31 Temperature Pulse Rate 64 66 Respiratory Rate 21 24 18 Blood Pressure 188/77 H 158/70 H Pulse Oximetry 98 98 98 07/02/20 19:00 07/02/20 19:30 07/02/20 20:00 Temperature Pulse Rate 60 60 65 Respiratory Rate 20 24 22 Blood Pressure 158/67 H 160/70 H 179/77 H Pulse Oximetry 98 96 96 07/02/20 20:30 07/02/20 20:31 Temperature Pulse Rate 65 64 Respiratory Rate 25 H 24 Blood Pressure 164/69 H Pulse Oximetry 94 94 <Trent Trivedi DO - Last Filed: 07/03/20 00:33> Orders Ordered: Discontinued Medications Levetiracetam 1,000 mg/ Sodium (Chloride) 110 mls @ 440 mls/hr IV NOW ONE Stop: 07/02/20 19:44 Last Infusion: 07/02/20 20:23 Dose: 0 mls/hr Documented by: JUAN JOSÉ Admin: 07/02/20 20:03 Dose: 440 mls/hr Documented by: ERNST Consultations Consultation #1: extensive discussion with stroke neurologist at [facility] (Alejandra) regarding recent ED visit, hospitalization and imaging. Given seizure like presentation, along with encephalomalacia on MRI his strong recommendation was to initiated Keppra , first with a 1000mg load in ED and then Rx for 500mg BID with outpatient followup and workup either locally or at the [facility] Epilepsy clinic. No need for hospitalization or transfer. Consultation #2: call to Dr. Ramyundo ([employer] and [employer] salesperson for [employer]) to relay these recommendations and arrange for close follow up. Vital Signs Vital signs: Vital Signs - 8 hr 07/02/20 16:48 07/02/20 17:36 07/02/20 17:56 Temperature 98.2 F Pulse Rate 74 69 70 Respiratory Rate 20 24 Blood Pressure 202/95 H 181/119 H Pulse Oximetry 96 97 07/02/20 18:00 07/02/20 18:30 07/02/20 18:31 Temperature Pulse Rate 64 66 Respiratory Rate 21 24 18 Blood Pressure 188/77 H 158/70 H Pulse Oximetry 98 98 98 07/02/20 19:00 07/02/20 19:30 07/02/20 20:00 Temperature Pulse Rate 60 60 65 Respiratory Rate 20 24 22 Blood Pressure 158/67 H 160/70 H 179/77 H Pulse Oximetry 98 96 96 07/02/20 20:30 07/02/20 20:31 Temperature Pulse Rate 65 64 Respiratory Rate 25 H 24 Blood Pressure 164/69 H Pulse Oximetry 94 94 MDM - Neuro Symptoms/Deficit <Janet Parada MD - Last Filed: 07/03/20 20:19> Medical Records Attestation: I reviewed the patient's medical records. Lab Data Attestation: I reviewed the patient's lab results. Result diagrams: 07/02/20 16:54 07/02/20 16:54 Labs: Lab Results 07/02/20 07/02/20 Range/Units 16:54 16:54 WBC 8.5 (4.5-11.0) X10^3/uL RBC 3.93 L (4.0-5.2) X10^6/uL Hgb 12.5 (12.0-16.0) g/dL Hct 37.3 (36-46) % MCV 94.9 (80-100) fL MCH 31.8 (26-34) PG MCHC 33.5 (30-36) % RDW 14.0 (11.6-14.8) % Plt Count 335 (150-400) X10^3/uL Neut % (Auto) 67.6 (50-75) % Lymph % (Auto) 19.5 L (25-40) % [place] % (Auto) 10.6 (3-14) % Eos % (Auto) 1.9 L (2-4) % Baso % (Auto) 0.4 (0-2) % Neut # (Auto) 5700 (0536-4678) /uL Lymph # (Auto) 1700 (5409-3427) /uL [place] # (Auto) 900 (0-900) /uL Eos # (Auto) 200 (0-450) /uL Baso # (Auto) 0 (0-100) /uL Sodium 139 (137-145) mmol/L Potassium 3.9 (3.4-5.1) mmol/L Chloride 104 (98-107) mmol/L Carbon Dioxide 31 (22-32) mmol/L BUN 17 (7-17) mg/dL Creatinine 0.59 (0.52-1.04) mg/dL Estimated GFR > 60.0 (>60) mL/min BUN/Creatinine Ratio 28.8 H (6-22) Glucose 103 (80-110) mg/dL Calcium 9.3 (8.4-10.2) mg/dL Total Bilirubin 0.5 (0.2-1.3) mg/dL AST 51 H (14-36) IU/L ALT 42 H (<35) IU/L Alkaline Phosphatase 77 (38-126) U/L Troponin I 0.066 H (0.01-0.034) ng/mL Total Protein 7.1 (6.3-8.2) g/dL Albumin 4.1 (3.5-5.0) g/dL Globulin 3.0 (1.7-4.1) g/dL Albumin/Globulin Ratio 1.4 (1.0-2.8) Imaging Data Brain MRI 06/30/2020: Radiologist's Impression: BRAIN MRI: No findings of acute or subacute infarction can be seen. 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 No masses or abnormal enhancement can be seen. Note is made of age-appropriate brain parenchymal volume loss and chronic small vessel ischemic changes. BRAIN MR ANGIOGRAM: No flow is seen within the right internal carotid artery. The left anterior cerebral artery and middle cerebral artery are supplied from the left side, across the anterior communicating artery. There is slightly decreased flow seen within the right middle cerebral artery compared to the left middle cerebral artery. 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 Approximately 30% narrowing can be seen involving the proximal left internal carotid artery. Dictated by: Archie Asher M.D. on 06/30/2020 at 13:14 MDM Narrative Medical decision making narrative: Case is reviewed with Dr Garcia. WIth MRI and Echo done in the last 48hrs the probability of a cardiac event or acute recurrent stoke is less likely. Possibility of seizure certainly is present. Will await blood work to make sure there is no toxic metabolic encephalopathy. Will review head CT today to make sure there is no new head bleed and then will need to discuss disposition need for readmission, where that might be and need for neurology is on inpatient setting verses an outpatient setting. <Trent Trivedi, - Last Filed: 07/03/20 00:33> Lab Data Labs: Lab Results 07/02/20 07/02/20 Range/Units 16:54 16:54 WBC 8.5 (4.5-11.0) X10^3/uL RBC 3.93 L (4.0-5.2) X10^6/uL Hgb 12.5 (12.0-16.0) g/dL Hct 37.3 (36-46) % MCV 94.9 (80-100) fL MCH 31.8 (26-34) PG MCHC 33.5 (30-36) % RDW 14.0 (11.6-14.8) % Plt Count 335 (150-400) X10^3/uL Neut % (Auto) 67.6 (50-75) % Lymph % (Auto) 19.5 L (25-40) % [place] % (Auto) 10.6 (3-14) % Eos % (Auto) 1.9 L (2-4) % Baso % (Auto) 0.4 (0-2) % Neut # (Auto) 5700 (1264-2813) /uL Lymph # (Auto) 1700 (0664-0545) /uL [place] # (Auto) 900 (0-900) /uL Eos # (Auto) 200 (0-450) /uL Baso # (Auto) 0 (0-100) /uL Sodium 139 (137-145) mmol/L Potassium 3.9 (3.4-5.1) mmol/L Chloride 104 (98-107) mmol/L Carbon Dioxide 31 (22-32) mmol/L BUN 17 (7-17) mg/dL Creatinine 0.59 (0.52-1.04) mg/dL Estimated GFR > 60.0 (>60) mL/min BUN/Creatinine Ratio 28.8 H (6-22) Glucose 103 (80-110) mg/dL Calcium 9.3 (8.4-10.2) mg/dL Total Bilirubin 0.5 (0.2-1.3) mg/dL AST 51 H (14-36) IU/L ALT 42 H (<35) IU/L Alkaline Phosphatase 77 (38-126) U/L Troponin I 0.066 H (0.01-0.034) ng/mL Total Protein 7.1 (6.3-8.2) g/dL Albumin 4.1 (3.5-5.0) g/dL Globulin 3.0 (1.7-4.1) g/dL Albumin/Globulin Ratio 1.4 (1.0-2.8) Discharge Plan Departure Patient Disposition: Home Clinical Impression: Observed seizure-like activity Discharge Date/Time: 07/02/20 20:50 Instructions: DI for Seizure Disorder -- Adult Activity Restrictions/Additional Instructions: *You have been diagnosed with [seizure-like activity.] *What to do: *Take medications as directed: Prescription sent to [facility] in [place]. * I have discussed your case at length with Neurology at [facility] as well as Dr. Raymundo who works in the same office as Jasmin De Los Santos and Dr. Hidalgo, she will be sure you are able to get in quickly and get a referral to a local neurology group. *Return to ER if you should have any new, worsening or concerning symptoms *No driving, no engaging in high risk activities should you have another seizure] Prescriptions: New levetiracetam [Keppra] 500 mg tablet 500 mg PO BID Qty: 60 RF: 0 No Action acetaminophen 325 mg capsule 325 mg PO QID PRN (Reason: pain) Qty: 90 RF: 0 clopidogrel 75 mg Tablet 75 mg PO DAILY Qty: 21 RF: 0 aspirin 81 mg Tablet,Delayed Release (Dr/Ec) 81 mg PO DAILY Qty: 30 RF: 0 atorvastatin 40 mg tablet 40 mg PO BEDTIME Qty: 30 RF: 0 lisinopril 40 mg tablet 40 mg PO DAILY Qty: 30 RF: 0 alprazolam 0.25 mg Tablet 0.25 mg PO BID PRN (Reason: pain) RF: 0 fluoxetine 10 MG capsule 10 mg PO DAILY RF: 0 vitamin E 400 unit Capsule 400 unit PO DAILY RF: 0 Centrum Silver 400-250 mcg Tablet,Chewable 1 tab PO DAILY RF: 0 CoQ-10 1 cap PO DAILY RF: 0 ascorbic acid (vitamin C) tablet 1 tab PO DAILY RF: 0 echinacea 1 tab PO DAILY RF: 0 Lactobacillus acidophilus [Acidophilus] Capsule 1 cap PO PRN PRN (Reason: Diarrhea) RF: 0 zinc 1 tab PO DAILY RF: 0 Referrals: Jasmin De Los Santos ARNP [Primary Care Provider] - ED Sign-out <Janet Parada MD - Last Filed: 07/03/20 20:19> [facility]: I was immediately available in the department for consultation throughout this patient's visit. I agree with documentation as above. Janet Parada MD
--- NOTE | 2020-07-02 17:34 | DI.CT.S_ITS ---
PROCEDURE: CT HEAD/BRAIN WO CON INDICATIONS: recent stroke symptoms, d/c yesterday, syncope X2 last hr TECHNIQUE: Noncontrast 4.5 mm thick angled axial sections acquired from the foramen magnum to the vertex, with coronal and sagittal reformats. For radiation dose reduction, the following was used: automated exposure control, adjustment of mA and/or kV according to patient size. COMPARISON: [facility], MR, MR STROKE, 06/30/2020, 13:00. [facility], CT, CT HEAD/BRAIN WO CON, 06/29/2020, 22:10. FINDINGS: Image quality: Excellent. CSF spaces: Basal cisterns are patent. No extra-axial fluid collections. The ventricles are dilated but symmetric in size and shape. Brain: No intracranial bleeds or masses. There is moderate cerebral volume loss for age, with resultant ventricular and sulcal prominence. There are moderate to severe periventricular and deep white matter chronic small vessel ischemic changes. There is intracranial internal carotid artery atherosclerosis. Skull and face: Calvarium and visualized facial bones appear intact, without suspicious lesions. Sinuses: Visualized sinuses and mastoids are clear. IMPRESSION: 1. No acute intracranial abnormalities. 2. Cerebral volume loss and chronic microvascular ischemic changes as described. 3. Ventricular dilation is out of proportion to prominent sulci. Differential diagnoses include central atrophy versus normal pressure hydrocephalus. Recommend clinical correlation. If clinically indicated, radionuclide ventriculography may be helpful for further evaluation. Dictated by: More Galeana M.D. on 07/02/2020 at 17:00 Approved by: More Galeana M.D. on 07/02/2020 at 17:04
[2020-07-02 17:43] LABS: Add Manual Diff / Slide Review NO; Basophils Absolute Auto 0 /uL (0-100); Basophils Percent Auto 0.4 % (0-2); Eosinophils Absolute Auto 200 /uL (0-450); Eosinophils Percent Auto 1.9 % (2-4); Hematocrit 37.3 % (36-46); Hemoglobin 12.5 g/dL (12.0-16.0); Lymphocytes Absolute Auto 1700 /uL (1100-4500); Lymphocytes Percent Auto 19.5 % (25-40); Mean Corpuscular HGB Conc 33.5 % (30-36); Mean Corpuscular Hemoglobin 31.8 PG (26-34); Mean Corpuscular Volume 94.9 fL (80-100); Monocytes Absolute Auto 900 /uL (0-900); Monocytes Percent Auto 10.6 % (3-14); Neutrophils Absolute Auto 5700 /uL (1500-7000); Neutrophils Percent Auto 67.6 % (50-75); Platelet Count 335 X10^3/uL (150-400); Red Blood Cell Count 3.93 X10^6/uL (4.0-5.2); White Blood Cell Count 8.5 X10^3/uL (4.5-11.0)
[2020-07-02 17:49] LABS: Alanine Aminotransferase 42 IU/L (<35); Albumin 4.1 g/dL (3.5-5.0); Albumin Globulin Ratio 1.4 (1.0-2.8); Alkaline Phosphatase 77 U/L (38-126); Aspartate Aminotransferase 51 IU/L (14-36); BUN Creatinine Ratio 28.8 (6-22); Bilirubin Total 0.5 mg/dL (0.2-1.3); Blood Urea Nitrogen 17 mg/dL (7-17); Calcium 9.3 mg/dL (8.4-10.2); Carbon Dioxide 31 mmol/L (22-32); Chloride 104 mmol/L (98-107); Estimated Glomerular Filt Rate > 60.0 mL/min (>60); Glucose 103 mg/dL (80-110); HEMOLYSIS < 15 (0-50); Potassium 3.9 mmol/L (3.4-5.1); Sodium 139 mmol/L (137-145); Total Protein 7.1 g/dL (6.3-8.2)
[2020-07-02 18:00] LABS: Troponin I 0.066 ng/mL (0.01-0.034)
[2020-07-02] MEDS: levETIRAcetam 1,000 MG in SODIUM CHLORIDE 0.9% 100 ML 440 ML IV (20:03)
== END 2020-07-02 20:50 | disposition home or self-care (01) ==
PROVIDERS: Emergency Medicine; Emergency Provider Emergency Medicine; PCP Nurse Practitioner
DX: R56.9 Unspecified convulsions (principal); R41.0 Disorientation, unspecified; I48.91 Unspecified atrial fibrillation; Z79.01 Long term (current) use of anticoagulants
CPT/HCPCS: 36415; 70450; 80053; 84484; 85025; 93005; 96365; 99284; J1953

== ENCOUNTER → 2020-09-05 14:00 | Outpatient (CLI) | payer MEDICARE, OTHER, SELFPAY ==
[2020-09-05 15:23] LABS: Appearance Urine UA CLEAR; Bilirubin Urine UA NEGATIVE (NEGATIVE); Color Urine UA YELLOW; Glucose Urine UA TRACE g/dL (Negative); Ketones Urine UA NEGATIVE (NEGATIVE); Leukocyte Esterase Urine UA NEGATIVE (NEGATIVE); Nitrite Urine UA NEGATIVE (Negative); Occult Blood Urine UA 3+ (Negative); Protein Urine UA 2+ (Negative); Specific Gravity Urine UA >=1.030 (1.000-1.035); Urobilinogen Urine UA 0.2 E.U./dL (0.2)
[2020-09-05 15:58] LABS: Bacteria Urine Many (>30); Culture Indicated Urine Specimen Cultured; Mucus Urine 1+ (Negative); RBC Urine 5-10/HPF (0-5/HPF); Squamous Epithelial Cell Urine 0-1 /HPF (0-5/HPF); WBC Urine 10-30/HPF (0-5/HPF)
== END ==
PROVIDERS: PCP Nurse Practitioner; Referring Provider Nurse Practitioner; Visit Provider Nurse Practitioner
DX: R44.3 Hallucinations, unspecified (principal)
CPT/HCPCS: 81001; 87086

== ENCOUNTER → 2020-09-09 09:08 | Outpatient (CLI) | payer MEDICARE, OTHER, SELFPAY ==
[2020-09-09 10:38] LABS: Alanine Aminotransferase 50 IU/L (<35); Albumin 3.8 g/dL (3.5-5.0); Albumin Globulin Ratio 1.4 (1.0-2.8); Alkaline Phosphatase 81 U/L (38-126); Aspartate Aminotransferase 55 IU/L (14-36); BUN Creatinine Ratio 40.4 (6-22); Bilirubin Total 0.6 mg/dL (0.2-1.3); Blood Urea Nitrogen 23 mg/dL (7-17); Calcium 9.1 mg/dL (8.4-10.2); Carbon Dioxide 30 mmol/L (22-32); Chloride 105 mmol/L (98-107); Estimated Glomerular Filt Rate > 60.0 mL/min (>60); Globulin 2.8 g/dL (1.7-4.1); Glucose 99 mg/dL (80-110); HEMOLYSIS < 15 (0-50); Potassium 3.7 mmol/L (3.4-5.1); Sodium 139 mmol/L (137-145); Total Protein 6.6 g/dL (6.3-8.2)
[2020-09-09 10:54] LABS: Free T3, Triiodothyronine Free 3.32 pg/mL (2.77-5.27); Free T4, Direct Thyroxine 1.17 ng/dL (0.78-2.19)
== END ==
PROVIDERS: PCP Nurse Practitioner; Referring Provider Nurse Practitioner; Visit Provider Nurse Practitioner
DX: R79.89 Other specified abnormal findings of blood chemistry (principal); I10 Essential (primary) hypertension; Z79.899 Other long term (current) drug therapy; R74.8 Abnormal levels of other serum enzymes
CPT/HCPCS: 36415; 80053; 84439; 84443; 84481

== ENCOUNTER 2022-01-26 12:56 | Emergency (ER) | payer OTHER, SELFPAY ==
[2022-01-26] VITALS (19 sets, daily range): BP systolic 150–229; BP diastolic 65–188; PULSE 64–84; RESP 15–24; TEMP 37.2; O2SAT 91–96; BMI 26.0
--- NOTE | 2022-01-26 13:19 | DI.RAD.S_ITS ---
PROCEDURE: XR CHEST 1V INDICATIONS: chest pain TECHNIQUE: One view of the chest was acquired. COMPARISON: [facility], CR, XR CHEST 1V, 01/16/2019, 16:29. FINDINGS: Surgical changes and devices: None. Lungs and pleura: Patient is mildly rotated towards the left, which partially obscures the left lung base. Lungs are otherwise clear. No pleural effusions or pneumothorax. Mediastinum: Mediastinal contours appear normal. Heart size is normal. At least moderate aortic atherosclerotic calcifications. Bones and chest wall: No suspicious bony lesions. Overlying soft tissues appear unremarkable. Generalized osteopenia multilevel degenerative changes are present. IMPRESSION: No acute cardiopulmonary abnormality. Dictated by: Rafat Choi M.D. on 01/26/2022 at 14:10 Approved by: Rafat Choi M.D. on 01/26/2022 at 14:11
[2022-01-26 13:51] LABS: Add Manual Diff / Slide Review NO; Basophils Absolute Auto 0 /uL (0-100); Basophils Percent Auto 0.6 % (0-2); Eosinophils Absolute Auto 100 /uL (0-450); Eosinophils Percent Auto 1.1 % (2-4); Hemoglobin 11.9 g/dL (12.0-16.0); Lymphocytes Absolute Auto 1000 /uL (1100-4500); Lymphocytes Percent Auto 13.2 % (25-40); Mean Corpuscular HGB Conc 33.9 % (30-36); Mean Corpuscular Hemoglobin 30.9 PG (26-34); Mean Corpuscular Volume 91.1 fL (80-100); Monocytes Absolute Auto 700 /uL (0-900); Monocytes Percent Auto 8.4 % (3-14); Neutrophils Absolute Auto 5900 /uL (1500-7000); Neutrophils Percent Auto 76.7 % (50-75); Platelet Count 327 X10^3/uL (150-400); Red Blood Cell Count 3.84 X10^6/uL (4.0-5.2); Red Cell Distribution Width 14.1 % (11.6-14.8); White Blood Cell Count 7.7 X10^3/uL (4.5-11.0)
--- NOTE | 2022-01-26 13:57 | ED_ITS ---
HPI - General Adult General Chief complaint: Hypertension Stated complaint: Hypertension 210/80 Time Seen by Provider: 01/26/22 13:28 Source: patient and family Mode of arrival: Wheelchair Limitations: other (dementia) History of Present Illness HPI narrative: This is a 81 year old female who comes emergency department with of hypertension. Patient's blood pressure was in the 200 range home was repeated and was 180. Patient does have some dementia according to her son and she has been taking her medications sporadically and he is unsure what medication she has been taking. She has blister packs her last 1 is there is a couple days missing from Wednesday and Wednesday. Patient denies headache, no chest pain or shortness of breath. No diaphoresis. No nausea or vomiting. No GI or urinary symptoms. She has had swelling in her lower extremities for several months it has been slightly worse. She has a history of intracranial hemorrhage x3 and states she had a vessel mapped a portion was removed but they did not fully reviewed move or repair this site because it would have been too risky. Burton rice is supposed to be taking lisinopril 40 mg, Plavix 75 mg, atorvastatin 40 mg and was on Lasix 20 mg prior. Her son does not believe she has taken any medications at least today and maybe tomorrow as well. She lives at home independently but has home health care that comes to the house but they are not qualified to past medication to the patient. He is seeking someone who can assist with this and possibly placement in a prison. Related Data Home Medications Medication Instructions Recorded Confirmed CoQ-10 1 cap PO DAILY 01/16/19 09/09/20 Lactobacillus acidophilus 1 cap PO PRN PRN 01/16/19 09/09/20 (Acidophilus) ascorbic acid (vitamin C) 1 tab PO DAILY 01/16/19 09/09/20 echinacea 1 tab PO DAILY 01/16/19 09/09/20 vitamin E 400 unit capsule 400 unit PO DAILY 01/16/19 09/09/20 zinc 1 tab PO DAILY 01/16/19 09/09/20 Previous Rx's Medication Instructions Recorded levetiracetam 500 mg tablet 250 mg PO BID #60 tab 08/16/20 (Keppra) ciprofloxacin HCl 500 mg tablet 500 mg PO Q12H #14 tab 09/05/20 (Cipro) phenazopyridine 100 mg tablet 100 mg PO TID PRN #6 tab 09/05/20 (Pyridium) aspirin 81 mg tablet,delayed 81 mg PO DAILY #90 tab 09/16/20 release atorvastatin 40 mg tablet 40 mg PO BEDTIME #90 tab 09/16/20 lisinopril 40 mg tablet 40 mg PO DAILY #90 tab 09/16/20 clopidogrel 75 mg tablet 75 mg PO DAILY #90 tab 12/17/20 furosemide 40 mg tablet (Lasix) 40 mg PO DAILY #5 tab 01/26/22 Allergies Allergy/AdvReac Type Severity Reaction Status Date / Time latex Allergy Severe BREAKOUT Verified 01/26/22 13:09 prochlorperazine Allergy Severe TARDIVE Verified 01/26/22 13:09 DYSKINESIA aspirin AdvReac Severe risk for Verified 01/26/22 13:09 bleeding/stroke, along with other blood thinners. Review of Systems Review of Systems ROS Unobtainable: All systems reviewed & are unremarkable except as noted in HPI and below Patient History Medical History Atrial fibrillation (2012) AVM (arteriovenous malformation) Cerebral aneurysm (1949) Chicken pox (1948) Chronic headaches CTS (carpal tunnel syndrome) (2004) Depression (1984) Elevated liver enzymes Elevated TSH Fibroids (1988) Foot pain Hallucination Hyperlipidemia Hypertension Lumbar spine pain (1976) Measles (1947) Migraines Other care home (current) drug therapy Ovarian cyst (1956) Painful menstrual periods (1951) Stroke Surgical History Anesthesia History of appendectomy (~07/1990) History of bilateral salpingo-oophorectomy (BSO) History of carpal tunnel repair (2004) Status post colonoscopy (09/05/07) Status post endoscopy (05/22/13) Status post epidural steroid injection Status post hysterectomy (~07/1990) Family History Brother Coronary artery disease Myocardial infarction Father Kidney disease Glomerulonephritis Grandfather Heart disease Cerebrovascular accident (CVA), unspecified mechanism Grandmother Essential hypertension Mental health problem Vascular disease Mother Multiple myeloma Grandmother Gastric hemorrhage Essential hypertension High cholesterol Brother No problems noted. Grandfather Myocardial infarction Social History marital status: household members: none Smoking Status: Former smoker alcohol intake: current Smoking Status: Former smoker alcohol intake frequency: 0-2 drinks per day Substance Use Type: does not use Exam Narrative Exam Narrative: GEN: well nourished, well appearing elderly female, alert and oriented self and location, patient appears to be in mild distress. Patient answers questions clearly and fluently but does have some occasional confabulation and gives contradictory answers at times. HEENT: Atraumatic, pupils are equal round reactive to light, extraocular movements are intact, nares are clear, TMs are clear with no fluid, there is no conjunctival pallor. Throat is clear without any exudates, erythema, tonsillar enlargement or uvular deviation, normal range of motion of neck. HEART: Regular rate and rhythm without murmur, clicks, rubs. LUNGS:Lungs clear to auscultation, no wheezes, rales, crackles, chest moves symmetrically ABD:bowel sounds normal, soft, non-tender, no guarding, rebound, rigidity, no masses noted, no hepatosplenomegaly :No CVA tenderness MSCL: Non-tender, no muscle atrophy, muscles strength 5/5 upper and lower extremities, full range of motion, normal gait NEURO:CN 2-12 intact, sensation normal, reflexes 2/4 upper and lower extremities. SKIN: No rash, erythema or skin changes. Initial Vital Signs Initial Vital Signs: Vital Signs Temperature 99 F 01/26/22 13:04 Pulse Rate 76 01/26/22 13:04 Respiratory Rate 16 01/26/22 13:04 Blood Pressure 193/78 H 01/26/22 13:04 Pulse Oximetry 95 01/26/22 13:04 Course Orders Ordered: ED Orders 01/26/22 13:19 XR chest 1V Stat EKG-12 Lead Stat 01/26/22 13:42 BNP [NT-proBNP (BNP-Adult 18+)] Stat Complete Blood Count AUTO DIFF Stat Comprehensive Metabolic Panel Stat Lipase Stat Magnesium Stat Troponin & CK Cardiac Panel Stat 01/26/22 14:13 CT head/brain wo con Stat 01/26/22 14:40 Urine Microscopic Stat 01/26/22 15:30 COVID19 -Nasal swab/Pre-Proc Stat 01/26/22 15:48 Troponin I Stat Discontinued Medications Furosemide (Furosemide 40 Mg/4 Ml Vial) 40 mg IV NOW ONE Stop: 01/26/22 14:15 Last Admin: 01/26/22 14:35 Dose: 40 mg Documented by: CURTIS Lisinopril (Lisinopril 20 Mg Tablet) 40 mg PO NOW ONE Stop: 01/26/22 14:15 Last Admin: 01/26/22 14:35 Dose: 40 mg Documented by: CURTIS Reevaluation(s) Reevaluation #1: Patient's blood pressures have been improving to 160s and 150s range occasionally 170s after oral lisinopril and a dose of Lasix. Patient's troponins were reviewed with patient and . She continues to be asymptomatic and suspect this is more demand ischemia. Patient has not been compliant with her medications and discussed with son who has plan to hire a qualified 8 who can formally past her medications so that she is taking them regularly. He also has a planned and is working on placing her in a facility such as a prison that can assist with this. Time: 17:16 Vital Signs Vital signs: Vital Signs - 8 hr 01/26/22 13:04 01/26/22 13:16 01/26/22 13:19 Temperature 99 F Pulse Rate 76 83 84 Respiratory Rate 16 16 Blood Pressure 193/78 H 229/100 H Pulse Oximetry 95 94 01/26/22 13:30 01/26/22 13:48 01/26/22 14:00 Temperature Pulse Rate 64 70 73 Respiratory Rate 21 16 23 Blood Pressure 186/74 H 200/86 H Pulse Oximetry 96 96 94 01/26/22 14:47 01/26/22 14:48 01/26/22 14:49 Temperature Pulse Rate 70 70 74 Respiratory Rate 15 16 Blood Pressure 205/90 H Pulse Oximetry 92 95 01/26/22 15:25 01/26/22 15:30 01/26/22 15:45 Temperature Pulse Rate 78 71 Respiratory Rate 23 24 Blood Pressure 197/80 H 215/188 H Pulse Oximetry 91 93 01/26/22 15:53 01/26/22 16:03 01/26/22 16:04 Temperature Pulse Rate 74 82 80 Respiratory Rate 23 24 19 Blood Pressure 184/77 H 189/77 H Pulse Oximetry 93 91 92 01/26/22 16:21 01/26/22 16:30 01/26/22 16:40 Temperature Pulse Rate 82 74 73 Respiratory Rate 24 24 19 Blood Pressure 166/80 H 150/65 H Pulse Oximetry 93 93 95 01/26/22 17:00 Temperature Pulse Rate 71 Respiratory Rate 22 Blood Pressure 178/73 H Pulse Oximetry 94 Medical Decision Making Lab Data Result diagrams: 01/26/22 13:42 01/26/22 13:42 Labs: Lab Results 01/26/22 01/26/22 01/26/22 Range/Units 13:42 13:42 13:42 WBC 7.7 (4.5-11.0) X10^3/uL RBC 3.84 L (4.0-5.2) X10^6/uL Hgb 11.9 L (12.0-16.0) g/dL Hct 35.0 L (36-46) % MCV 91.1 (80-100) fL MCH 30.9 (26-34) PG MCHC 33.9 (30-36) % RDW 14.1 (11.6-14.8) % Plt Count 327 (150-400) X10^3/uL Neut % (Auto) 76.7 H (50-75) % Lymph % (Auto) 13.2 L (25-40) % [place] % (Auto) 8.4 (3-14) % Eos % (Auto) 1.1 L (2-4) % Baso % (Auto) 0.6 (0-2) % Neut # (Auto) 5900 (7128-0640) /uL Lymph # (Auto) 1000 L (7314-1827) /uL [place] # (Auto) 700 (0-900) /uL Eos # (Auto) 100 (0-450) /uL Baso # (Auto) 0 (0-100) /uL Sodium 139 (137-145) mmol/L Potassium 4.1 (3.4-5.1) mmol/L Chloride 106 (98-107) mmol/L Carbon Dioxide 25 (22-32) mmol/L BUN 26 H (7-17) mg/dL Creatinine 0.65 (0.52-1.04) mg/dL Estimated GFR > 60.0 (>60) mL/min BUN/Creatinine Ratio 40.0 H (6-22) Glucose 99 (80-110) mg/dL Calcium 9.2 (8.4-10.2) mg/dL Magnesium 2.0 (1.6-2.3) mg/dL Total Bilirubin 0.6 (0.2-1.3) mg/dL AST 41 H (14-36) IU/L ALT 25 (<35) IU/L Alkaline Phosphatase 80 (38-126) U/L Total Creatine Kinase 87 (30-135) U/L CK-MB (CK-2) TNP CK-MB (CK-2) Rel Index TNP Troponin I 0.113 H (0.01-0.034) ng/mL NT-Pro-B Natriuret Pep 4260 H (<450) pg/mL Total Protein 7.0 (6.3-8.2) g/dL Albumin 4.0 (3.5-5.0) g/dL Globulin 3.0 (1.7-4.1) g/dL Albumin/Globulin Ratio 1.3 (1.0-2.8) Lipase 59 (23-300) U/L Urine RBC (0-5/HPF) Urine WBC (0-5/HPF) Ur Squamous Epith Cells (0-5/HPF) Urine Bacteria (None) Ur Culture Indicated? SARS-CoV-2 (PCR) (Negative) 01/26/22 01/26/22 01/26/22 Range/Units 14:40 15:30 15:48 WBC (4.5-11.0) X10^3/uL RBC (4.0-5.2) X10^6/uL Hgb (12.0-16.0) g/dL Hct (36-46) % MCV (80-100) fL MCH (26-34) PG MCHC (30-36) % RDW (11.6-14.8) % Plt Count (150-400) X10^3/uL Neut % (Auto) (50-75) % Lymph % (Auto) (25-40) % [place] % (Auto) (3-14) % Eos % (Auto) (2-4) % Baso % (Auto) (0-2) % Neut # (Auto) (5595-4399) /uL Lymph # (Auto) (7559-9234) /uL [place] # (Auto) (0-900) /uL Eos # (Auto) (0-450) /uL Baso # (Auto) (0-100) /uL Sodium (137-145) mmol/L Potassium (3.4-5.1) mmol/L Chloride (98-107) mmol/L Carbon Dioxide (22-32) mmol/L BUN (7-17) mg/dL Creatinine (0.52-1.04) mg/dL Estimated GFR (>60) mL/min BUN/Creatinine Ratio (6-22) Glucose (80-110) mg/dL Calcium (8.4-10.2) mg/dL Magnesium (1.6-2.3) mg/dL Total Bilirubin (0.2-1.3) mg/dL AST (14-36) IU/L ALT (<35) IU/L Alkaline Phosphatase (38-126) U/L Total Creatine Kinase (30-135) U/L CK-MB (CK-2) CK-MB (CK-2) Rel Index Troponin I 0.118 H (0.01-0.034) ng/mL NT-Pro-B Natriuret Pep (<450) pg/mL Total Protein (6.3-8.2) g/dL Albumin (3.5-5.0) g/dL Globulin (1.7-4.1) g/dL Albumin/Globulin Ratio (1.0-2.8) Lipase (23-300) U/L Urine RBC 1-5/hpf (0-5/HPF) Urine WBC 1-5/hpf (0-5/HPF) Ur Squamous Epith Cells 1-5 /hpf (0-5/HPF) Urine Bacteria Occasional (0-1) D (None) Ur Culture Indicated? Cult not indicated SARS-CoV-2 (PCR) Negative (Negative) Urine Dip Bedside Urine Glucose Negative Bedside Urine Bilirubin - Negative Bedside Urine Ketone - Negative Urine Specific [place] 1.025 Bedside Urine Occult Blood - Negative Bedside Urine pH 6.0 Bedside Urine Protein + 30 Bedside Urine Urobilinogen - Negative Bedside Urine Nitrite - Negative Bedside Urine Leukocytes - Negative Esterase Point of care testing: Urine Dip Bedside Urine Glucose Negative Bedside Urine Bilirubin - Negative Bedside Urine Ketone - Negative Urine Specific [place] 1.025 Bedside Urine Occult Blood - Negative Bedside Urine pH 6.0 Bedside Urine Protein + 30 Bedside Urine Urobilinogen - Negative Bedside Urine Nitrite - Negative Bedside Urine Leukocytes - Negative Esterase Imaging Data Chest x-ray: Radiologist's Impression: [address] [address] XRay Report Signed Patient: Teresa Monet MR#: [id number] : 1940 Acct:[id number] Age/Sex: 81 / F Date of Service: 01/26/22 Loc: ED Accession Number: [id number] ?? Procedure: XR chest 1V Ordering Provider: Sabrina Patten D.O. PROCEDURE:? XR CHEST 1V ? INDICATIONS:? chest pain ? TECHNIQUE:? One view of the chest was acquired.? ? COMPARISON:? [facility], CR, XR CHEST 1V, 01/16/2019, 16:29. ? FINDINGS:? ? Surgical changes and devices:? None.? ? Lungs and pleura:? Patient is mildly rotated towards the left, which partially obscures the left lung base.? Lungs are otherwise clear.? No pleural effusions or pneu mothorax.? ? Mediastinum:? Mediastinal contours appear normal.? Heart size is normal.? At least moderate aortic atherosclerotic calcifications. ? Bones and chest wall:? No suspicious bony lesions.? Overlying soft tissues appear unremarkable.? Generalized osteopenia multilevel degenerative changes are present. ? IMPRESSION:? No acute cardiopulmonary abnormality. ? ? Dictated by: Rafat Choi M.D. on 01/26/2022 at 14:10 ? ? Approved by: Rafat Choi M.D. on 01/26/2022 at 14:11 ECG Data Attestation: I personally reviewed and interpreted this ECG as follows: Interpretation: AFib with anterior fascicular block. Rate 81 QRS 84 and QTC of 460. Patient appears to have some motion artifact, nonspecific change. MDM Narrative Medical decision making narrative: This is an 81-year-old female with documented elevated blood pressures here in the department and noted to be elevated up to the 200 systolic range at home. Patient has been noncompliant with her medications secondary to dementia and currently has been in control of when she takes her medications. She does have a history of AVM with cerebral an aneurysm and bleeds so head CT was obtained although she is currently asymptomatic. Chest x-ray, labs to evaluate for end- organ damage. Patient has indeterminate troponin which has been elevated before but not quite as high. She is asymptomatic but troponin was repeated, about the same. No acute EKG changes were appreciated. Patient continues to be asymptomatic. There is no obvious acute EKG changes today. Discussed with son he is attempting to find home health care director rn who is qualified to give the patient her medications so that they can be taken regularly. He is also currently seeking to place her in a prison which I think is very appropriate. We do not have social Work available today but was offered their contact information or to have a licensed master social worker contact the son for resources in options defers this today but is aware that this is a possible resource. Discharge Plan Departure Patient Disposition: Home Clinical Impression: Hypertension Instructions: DI for High Blood Pressure Activity Restrictions/Additional Instructions: Follow-up with your physician. I would recommend having someone give your medication daily to make sure your getting your blood pressure medications so that you did not continued to have elevated blood pressures putting you at risk for head or intracranial bleeding. I would recommend adding a short course of Lasix for the swelling in your lower extremities. Prescription sent to [facility] in [facility] Please return for severe headaches, new chest pain or shortness of breath, rapidly worsening swelling of her legs, passing out, persistent vomiting or other new or concerning symptoms. Prescriptions: New furosemide [Lasix] 40 mg tablet 40 mg PO DAILY Qty: 5 0RF No Action levetiracetam [Keppra] 500 mg tablet 250 mg PO BID Qty: 60 0RF ciprofloxacin HCl [Cipro] 500 mg tablet 500 mg PO Q12H Qty: 14 0RF Rx Instructions: Take 1 tablet by mouth every 12 hours for 7 days. phenazopyridine [Pyridium] 100 mg tablet 100 mg PO TID PRN (Reason: pain) Qty: 6 0RF Rx Instructions: Take 1 tablet by mouth up to 3 times per day for bladder pain, pain with urination aspirin 81 mg tablet,delayed release (DR/EC) 81 mg PO DAILY Qty: 90 3RF atorvastatin 40 mg tablet 40 mg PO BEDTIME Qty: 90 3RF lisinopril 40 mg tablet 40 mg PO DAILY Qty: 90 3RF clopidogrel 75 mg tablet 75 mg PO DAILY Qty: 90 2RF vitamin E 400 unit Capsule 400 unit PO DAILY 0RF CoQ-10 1 cap PO DAILY 0RF ascorbic acid (vitamin C) tablet 1 tab PO DAILY 0RF echinacea 1 tab PO DAILY 0RF Lactobacillus acidophilus [Acidophilus] Capsule 1 cap PO PRN PRN (Reason: Diarrhea) 0RF zinc 1 tab PO DAILY 0RF Referrals: Jasmin De Los Santos ARNP [Primary Care Provider] -
[2022-01-26 14:12] LABS: Alanine Aminotransferase 25 IU/L (<35); Albumin Globulin Ratio 1.3 (1.0-2.8); Alkaline Phosphatase 80 U/L (38-126); Aspartate Aminotransferase 41 IU/L (14-36); Bilirubin Total 0.6 mg/dL (0.2-1.3); Blood Urea Nitrogen 26 mg/dL (7-17); Calcium 9.2 mg/dL (8.4-10.2); Carbon Dioxide 25 mmol/L (22-32); Chloride 106 mmol/L (98-107); Creatine Kinase 87 U/L (30-135); Estimated Glomerular Filt Rate > 60.0 mL/min (>60); Glucose 99 mg/dL (80-110); HEMOLYSIS < 15 (0-50); Lipase 59 U/L (23-300); Potassium 4.1 mmol/L (3.4-5.1); Sodium 139 mmol/L (137-145)
--- NOTE | 2022-01-26 14:13 | DI.CT.S_ITS ---
PROCEDURE: CT HEAD/BRAIN WO CON INDICATIONS: Hypertension, history of head bleeds. TECHNIQUE: Noncontrast 4.5 mm thick angled axial sections acquired from the foramen magnum to the vertex, with coronal and sagittal reformats. For radiation dose reduction, the following was used: automated exposure control, adjustment of mA and/or kV according to patient size. COMPARISON: [facility], MR, MR STROKE, 06/30/2020, 13:00. [facility], CT, CT HEAD/BRAIN WO CON, 06/29/2020, 22:10. [facility], CT, CT HEAD/BRAIN WO CON, 07/02/2020, 17:49. FINDINGS: Image quality: Excellent. CSF spaces: Basal cisterns are patent. No extra-axial fluid collections. The ventricles are symmetric in size and shape. Brain: No intracranial bleeds or masses. There is moderate cerebral volume loss for age, with resultant ventricular and sulcal prominence. There are severe periventricular and deep white matter chronic small vessel ischemic changes. Bilateral basal ganglia calcifications are unchanged. There is intracranial internal carotid artery atherosclerosis. Skull and face: Calvarium and visualized facial bones appear intact, without suspicious lesions. Sinuses: Visualized sinuses and mastoids are clear. IMPRESSION: 1. No acute intracranial abnormalities. 2. Cerebral volume loss and chronic microvascular ischemic changes. Dictated by: More Galeana M.D. on 01/26/2022 at 14:56 Approved by: More Galeana M.D. on 01/26/2022 at 15:01
[2022-01-26 14:22] LABS: Troponin I 0.113 ng/mL (0.01-0.034)
[2022-01-26] MEDS: lisinopriL 20 MG TABLET 40 MG PO (14:35)
[2022-01-26] MEDS: FUROSEMIDE 40 MG/4 ML VIAL IV (14:35)
[2022-01-26 14:45] LABS: NT-proBNP (BNP-Adult 18+) 4260 pg/mL (<450)
[2022-01-26 15:50] LABS: Bacteria Urine Occasional (0-1); Culture Indicated Urine Cult Not Indicated; RBC Urine 1-5/HPF (0-5/HPF); Squamous Epithelial Cell Urine 1-5 /HPF (0-5/HPF); WBC Urine 1-5/HPF (0-5/HPF)
[2022-01-26 16:11] LABS: COVID19 -Nasal RAPID Negative (Negative)
[2022-01-26 16:57] LABS: Troponin I 0.118 ng/mL (0.01-0.034)
== END 2022-01-26 17:38 | disposition home or self-care (01) ==
PROVIDERS: Emergency Provider Emergency Medicine; PCP Nurse Practitioner
DX: I10 Essential (primary) hypertension (principal); Z87.891 Personal history of nicotine dependence; Z87.74 Personal history of (corrected) congenital malformations of heart and circulatory system; Z20.822 Contact with and (suspected) exposure to COVID-19
CPT/HCPCS: 36415; 70450; 71045; 80053; 81003; 81015; 82550; 83690; 83735; 83880; 84484; 85025; 87635; 93005; 93010; 96374; 99284; 99285; C9803; J1940